=== PATIENT | female | born 1995 | race Caucasian/White ===

== ENCOUNTER 2020-06-11 16:52 | Outpatient (REF) | payer OTHER, SELFPAY ==
--- NOTE | 2020-06-11 14:00 | PAPFT_PTH ---
PATIENT: Ratna King LOC: [facility] U#:[id number] AGE/SX: 24/F ROOM: RE06/11/[address]: JB Kaminski : 1995 BED: DIS: 06/11/2020 SPEC #: [id number] RECD: 06/11/20 17:39 STATUS: CHADWICK REJeosph #: [id number] STEFANIE: 06/11/20 14:[address]: Lesley Mendoza DEPT: [facility] Cytology RECD BY: Joselyn Keita ENTERED: 06/11/20 17:40 SP TYPE: PAPFT OTHR DR: Myesha Green Tissues: 1 - CX/ENDOCX FOR PAP SMEARS Procedures: PAP THIN PREP/[facility] Screening HPV DNA PROBE Comments: [id number]
== END 2020-06-11 17:12 ==
LOC: LBN 16:52
PROVIDERS: PCP Pediatrics Adolescent Medicine; Visit Provider Nurse Practitioner Family
DX: Z12.4 Encounter for screening for malignant neoplasm of cervix (principal); Z11.51 Encounter for screening for human papillomavirus (HPV); R87.612 Low grade squamous intraepithelial lesion on cytologic smear of cervix (LGSIL); R87.810 Cervical high risk human papillomavirus (HPV) DNA test positive
CPT/HCPCS: 88142; 87624

== ENCOUNTER 2020-07-16 10:22 | Outpatient (REF) | payer OTHER, SELFPAY ==
--- NOTE | 2020-07-16 10:10 | ENDO_PTH ---
PATIENT: Ratna King LOC: [facility] U#:[id number] AGE/SX: 24/F ROOM: RE07/16/[address]: Elissa Mckenzie : 1995 BED: DIS: 07/16/2020 SPEC #: [id number] RECD: 07/16/20 12:41 STATUS: CHADWICK REJoesph #: [id number] STEFANIE: 07/16/20 10:[address]: Elissa Mckenzie DEPT: Surgical Specimen RECD BY: Joselyn Keita ENTERED: 07/16/20 12:42 SP TYPE: Endo OTHR DR: Myesha Green Tissues: 1 - ENDOCERVICAL BX/CURRETTE 2 - CERVICAL BIOPSY Procedures: GROSS AND MICRO LEVEL 4 Comments: [id number]
== END 2020-07-16 10:42 ==
LOC: LBN 10:22
PROVIDERS: PCP Pediatrics Adolescent Medicine; Visit Provider Obstetrics & Gynecology Gynecology
DX: N88.8 Other specified noninflammatory disorders of cervix uteri (principal); R87.610 Atypical squamous cells of undetermined significance on cytologic smear of cervix (ASC-US); R87.810 Cervical high risk human papillomavirus (HPV) DNA test positive
CPT/HCPCS: 88305

== ENCOUNTER 2021-08-20 11:55 | Outpatient (REF) | payer OTHER, SELFPAY ==
--- NOTE | 2021-08-20 11:30 | PAPFT_PTH ---
PATIENT: Ratna King LOC: [facility] U#:[id number] AGE/SX: 25/F ROOM: RE08/20/[address]: JB Kaminski : 1995 BED: DIS: 08/20/2021 SPEC #: [id number] RECD: 08/20/21 13:06 STATUS: [place]WICK VASQUEZ #: [id number] STEFANIE: 08/20/21 11:[address]: Lesley Mendoza [facility] Cytology RECD BY: Joselyn Keita ENTERED: 08/20/21 13:06 SP TYPE: PAPFT OTHR DR: Myesha Green Tissues: 1 - CX/ENDOCX FOR PAP SMEARS Procedures: PAP THIN PREP/UVM Screening Comments: [id number]
== END 2021-08-20 11:56 | disposition home or self-care (01) ==
LOC: LBN 11:55
PROVIDERS: PCP Pediatrics Adolescent Medicine; Visit Provider Nurse Practitioner Family
DX: Z12.4 Encounter for screening for malignant neoplasm of cervix (principal)
CPT/HCPCS: 88142

== ENCOUNTER 2022-08-31 11:40 | Outpatient (REF) | payer OTHER, SELFPAY ==
--- NOTE | 2022-08-31 08:30 | PAPFT_PTH ---
PATIENT: Ratna King LOC: [facility] U#:[id number] AGE/SX: 26/F ROOM: RE08/31/[address]: Shital Villela NP : 1995 BED: DIS: 08/31/2022 SPEC #: [id number] RECD: 08/31/22 12:53 STATUS: CH[place]WICK REJoesph #: [id number] STEFANIE: 08/31/22 08:[address]: Shital Villela NP DEPT: [facility] Cytology RECD BY: Joselyn Keita ENTERED: 08/31/22 12:54 SP TYPE: PAPFT OTHR DR: Myesha Green Tissues: 1 - CX/ENDOCX FOR PAP SMEARS Procedures: PAP THIN PREP/UVM Screening Comments: [id number]
== END 2022-08-31 11:41 | disposition home or self-care (01) ==
LOC: LBN 11:40
PROVIDERS: PCP Pediatrics Adolescent Medicine; Visit Provider Nurse Practitioner Women's Health
DX: Z12.4 Encounter for screening for malignant neoplasm of cervix (principal); R87.612 Low grade squamous intraepithelial lesion on cytologic smear of cervix (LGSIL)
CPT/HCPCS: 88142

== ENCOUNTER 2022-09-22 15:41 | Outpatient (REF) | payer OTHER, SELFPAY ==
--- NOTE | 2022-09-22 15:30 | CER_PTH ---
PATIENT: Ratna King LOC: [facility] U#:[id number] AGE/SX: 26/F ROOM: RE09/22/[address]: Hiral Paz MD : 1995 BED: DIS: 09/22/2022 SPEC #: [id number] RECD: 09/22/22 17:08 STATUS: [place]ICK REJoesph #: [id number] STEFANIE: 09/22/22 15:[address]: Hiral Paz DEPT: Surgical Specimen RECD BY: Joselyn Keita ENTERED: 09/22/22 17:08 SP TYPE: CER OTHR DR: Myesha Green Tissues: 1 - CERVICAL BIOPSY Procedures: GROSS AND MICRO LEVEL 4 P16 IPEX Comments: [id number]
== END 2022-09-22 15:42 | disposition home or self-care (01) ==
LOC: LBN 15:41
PROVIDERS: PCP Pediatrics Adolescent Medicine; Visit Provider Obstetrics & Gynecology
DX: N87.0 Mild cervical dysplasia (principal); R87.612 Low grade squamous intraepithelial lesion on cytologic smear of cervix (LGSIL)
CPT/HCPCS: 88305; 88342

== ENCOUNTER 2023-09-26 15:54 | Outpatient (CLI) | payer OTHER, SELFPAY ==
[2023-09-26 17:07] LABS: TSH (W/Ref FT4) 3.79 uIU/mL (0.36-3.74)
[2023-09-26 17:24] LABS: FREE T4 0.79 ng/dL (0.76-1.46)
[2023-09-27 18:30] LABS: Progesterone <0.2 ng/mL (See Table)
[2023-09-27 18:52] LABS: FSH 8.8 mIU/mL (See Note)
[2023-10-03 16:19] LABS: Testosterone, Free 0.66 ng/dL (<0.13-1.06); Testosterone, Total 25 ng/dL (8-60)
== END 2023-09-26 15:55 | disposition home or self-care (01) ==
LOC: LBO 15:57
PROVIDERS: PCP Pediatrics Adolescent Medicine; Visit Provider Nurse Practitioner Women's Health
DX: Z31.9 Encounter for procreative management, unspecified (principal); N92.6 Irregular menstruation, unspecified
CPT/HCPCS: 36415; 84402; 84403; 83001; 83520; 84144; 84439; 84443

== ENCOUNTER 2023-09-26 16:13 | Outpatient (REF) | payer OTHER, SELFPAY ==
--- NOTE | 2023-09-26 15:15 | PAPFT_PTH ---
PATIENT: Ratna King LOC: [facility] U#:[id number] AGE/SX: 27/F ROOM: RE09/26/[address]: Shital Villela NP : 1995 BED: DIS: 09/26/2023 SPEC #: [id number] RECD: 09/26/23 17:45 STATUS: CH[place]WICK VASQUEZ #: [id number] STEFANIE: 09/26/23 15:[address]: Shital Villela NP DEPT: [facility] Cytology RECD BY: Joselyn Keita ENTERED: 09/26/23 17:45 SP TYPE: PAPFT OTHR DR: Myesha Green Tissues: 1 - CX/ENDOCX FOR PAP SMEARS Procedures: PAP THIN PREP/UVM Screening Comments: [id number]
== END 2023-09-26 16:14 | disposition home or self-care (01) ==
LOC: LBN 16:13
PROVIDERS: PCP Pediatrics Adolescent Medicine; Visit Provider Nurse Practitioner Women's Health
DX: Z12.4 Encounter for screening for malignant neoplasm of cervix (principal)
CPT/HCPCS: 88142

== ENCOUNTER 2024-04-30 22:20 | Outpatient (CLI) | payer OTHER, SELFPAY ==
--- OUTSIDE RECORDS SUMMARY | 2024-04-30 22:22 | XMS_ITS | Encounter Summary ---
Author Organization [facility] Address [address] [place] [address] Care Team Providers Care Corporate Aircraft Mechanic Name Role Phone Kerry Green MD Primary Care Provider [phone] Encounter Details Date Type Department Care Team (Late st Contact Info) Description 08/23/2021 Lab Requisition [facility] Pathology & Laboratory Medicine - [address] [address] Lesley Mendoza, [address] [place] [place] [address] Encounter for other general examination Social History Tobacco Use Types Packs/Day Years Used Date Smoking Tobacco: Never Assessed Sex and Gender Information Value Date Recorded Sex Assigned at Not on file Gender Identity Not on file Sexual Orientation Not on file documented as of this encounter Plan of Treatment Not on file documented as of this encounter Procedures Procedure Name Priority Date/Time Associated Diagnosis Comments PAP TEST Today 08/20/2021 11:30 EST Encounter for other general examination documented in this encounter Results * PAP TEST (08/20/2021 11:30 EST) Specimens A. Cervix and/or Endocervix , ThinPrep Imaging System with Manual Evaluation 08/31/2021 15:12 EST [facility] Specimen Adequacy Satisfactory for Evaluation - transformation zone component absent 08/31/2021 15:12 EST [facility] General Categorization Negative for intraepithelial lesion or malignancy 08/31/2021 15:12 EST [facility] Attestation . 08/31/2021 15:12 EST [facility] at 1512 Clinical History See below 08/31/19 15:12 EST [facility] Performing Lab [facility] 08/31/2021 15:12 EST [facility] Scanned Images 08/31/2021 15:12 EST [facility] Papanicolaou smear specimen (specimen) CERVIX UTERI STRUCTURE / Unknown 08/20/2021 11:30 EST 08/23/2021 10:52 EST Lesley Mendoza INTEGRATED SPECIALIST PATHOLOGY ORDERABLES Performing Organization Address City/State/[facility] Co de Phone Number [facility] [address] [place] [address] documented in this encounter Visit Diagnoses Diagnosis Encounter for other general examination documented in this encounter Care Teams Corporate Aircraft Mechanic Relationship Specialty Start Date End Date Kerry Green MD [address] [place] [address] PCP - General 06/11/20 documented as of this encounter
--- OUTSIDE RECORDS SUMMARY | 2024-04-30 22:22 | XMS_ITS | Encounter Summary ---
Author Organization [facility] Address [address] [place] [address] Care Team Providers Care Specialty Molder Name Role Phone Kerry Green MD Primary Care Provider Encounter Details Date Type Department Care Team (Late st Contact Info) Description 04/30/2024 Lab Requisition [facility] Pathology & Laboratory Medicine - [address] [address] Outr Resulting Lab, Provider Social History Tobacco Use Types Packs/Day Years Used Date Smoking Tobacco: Never Assessed Sex and Gender Information Value Date Recorded Sex Assigned at Not on file Gender Identity Not on file Sexual Orientation Not on file documented as of this encounter Plan of Treatment Scheduled Orders Name Type Priority Associated Diagnoses Orde r Schedule CHLAMYDIA/N. GONORRHOEAE AMPLIFIED NUCLEIC ACID Microbiology Routine Ordered: 024 documented as of this encounter Visit Diagnoses Not on filedocumented in this encounter Care Teams Specialty Molder Relationship Specialty Start Date End Date Kerry Green MD [address] [place] [address] PCP - General 06/11/20 documented as of this encounter
--- OUTSIDE RECORDS SUMMARY | 2024-04-30 22:22 | XMS_ITS | Encounter Summary ---
Author Organization [facility] Address [address] [place] [address] Care Team Providers Care Tar Heat Exchanger Cleaner Name Role Phone Kerry Green MD Primary Care Provider [phone] Encounter Details Date Type Department Care Team (Late st Contact Info) Description 06/09/2021 Lab Requisition [facility] Pathology & Laboratory Medicine - [address] [address] Outr Resulting Lab, Provider Social History Tobacco [...] Procedure Name Priority Date/Time Associated Diagnosis Comments ZZCOVID-19 TEST [facility] PCR Today 06/09/2021 10:15 EST COVID-19 TESTING Routine 06/09/2021 10:1 5 EST documented in this encounter Results * COVID-19 TEST [facility] PCR (06/09/2021 10:15 EST) Swab 06/09/2021 10:1 5 EST 06/09/2021 22:40 EST Provider Outr Resulting Lab MICROBIOLOGY - GENERAL ORDERABLES [facility] [address] [place] [address] * COVID-19 TESTING (06/09/2021 10:15 EST) COVID-19 rt-PCR Result Negative Negative 06/10/2021 2:20 EST [facility] Comment: This test has not been FDA cleared or approved. This test has been authorized by FDA under an EUA for use by authorized laboratories. This test has been authorized only for detection of nucleic acid from 2019-nCoV, not for any other viruses or pathogens. This test is only authorized for the duration of the declaration that circumstances exist justifying the authorization of emergency use of in vitro diagnostic tests for detection and/or diagnosis of 2019-nCoV under section 564(b)(1) of Act, 21 U.S.C ?? 360bbb-3(b) (1), unless the authorization is terminated or revoked sooner. Negative results do not preclude 2019-nCoV infection and should not be used as the sole basis for treatment or other patient management decisions. Negative results must be combined with clinical observations, patient history, and epidemiological information. Performed on the MWHSher Fusion instrument Performing Lab [place] [facility] 06/10/2021 2:20 EST [facility] Swab 06/09/2021 10:1 5 EST 06/09/2021 22:40 EST Provider Outr Resulting Lab MICROBIOLOGY - GENERAL ORDERABLES [facility] [address] [place] [address] documented in this encounter Visit Diagnoses Not on filedocumented in this encounter Care Teams Tar Heat Exchanger Cleaner Relationship Specialty Start Date End Date Kerry Green MD [address] [place] [address] PCP - General 06/11/20 documented as of this encounter
--- OUTSIDE RECORDS SUMMARY | 2024-04-30 22:22 | XMS_ITS | Encounter Summary ---
Author Organization [facility] Address [address] [place] [address] Care Team Providers Care Machine Icer Name Role Phone Kerry Green MD Primary Care Provider [phone] Encounter Details Date Type Department Care Team (Late st Contact Info) Description 09/27/2023 Lab Requisition [facility] Pathology & Laboratory Medicine - [address] [id number] Outr Resulting Lab, Provider Social History Tobacco [...] Procedure Name Priority Date/Time Associated Diagnosis Comments PROGESTERONE Routine 09/26/2023 15:44 EDT [facility] Routine 09/26/2023 15:44 EDT documented in this encounter Results * FSH (09/26/2023 15:44 EDT) FSH 8.8 See Note mIU/mL 09/27/2023 18:47 EDT [facility] Blood VENOUS BLOOD / Unknown 09/26/2023 15:44 EDT 09/27/2023 16:58 EDT Narrative [facility] - 09/27/2023 18:47 EDT NOTE: Female FSH Reference Ranges (Menstruating): PHYSIOLOGICAL STATUS ? REFERENCE RANGE ? Follicular (-12 to -4 days): ?? 2.5 - 10.2 mIU/mL Midcycle (-3 to +2 days): ?3.4 - 33.4 mIU/mL Luteal (+4 to +12 days): ? 1.5 - 9.1 mIU/mL Postmenopausal: ?23.0 - 116.3 mIU/mL Reference Ranges for pediatric non-menstruating female patients have not been established. Provider Outr Resulting Lab CHEMISTRY & BLOOD GAS ORDERABLES [facility] [address] [place] [address] * PROGESTERONE (09/26/2023 15:44 EDT) [facility] Progesterone <0.2 See Table ng/mL 09/27/2023 18:26 EDT [facility] Comment: Female Reference Ranges: PHYSIOLOGICAL STATUS ?REFERENCE RANGE ? Pre-Pubertal: ? <= 0.2 ng/mL Menstruating: (Non-) Follicular Phase: ? <= 1.4 ng/mL Luteal Phase: ? 3.3 - 25.6 ng/mL Mid-luteal Phase: ? 4.4 - 28.0 ng/mL Postmenopausal: ? <= 0.7 ng/mL : -------- First Trimester: ?11.2 - 90.0 ng/mL Second Trimester: ? 25.6 - 89.4 ng/mL Third Trimester: ?48.4 - 422.5ng/mL For ectopic , consult a pathologist. Blood VENOUS BLOOD / Unknown 09/26/2023 15:44 EDT 09/27/2023 16:58 EDT Provider Outr Resulting Lab CHEMISTRY & BLOOD GAS ORDERABLES Performing Organization Address City/State/[facility] Co de Phone Number [facility] [address] [place] [address] documented in this encounter Visit Diagnoses Not on filedocumented in this encounter Care Teams Machine Icer Relationship Specialty Start Date End Date Kerry Green MD [address] [place] [address] PCP - General 06/11/20 documented as of this encounter
--- OUTSIDE RECORDS SUMMARY | 2024-04-30 22:22 | XMS_ITS | Encounter Summary ---
Author Organization [facility] Address [address] [place] [address] Care Team Providers Care Scientific Artist Name Role Phone Kerry Green MD Primary Care Provider [phone] Encounter Details Date Type Department Care Team (Late st Contact Info) Description 09/23/2022 Lab Requisition [facility] Pathology & Laboratory Medicine - [address] [address] Hiral Paz MD [address] [place] [address] [place] [address] Encounter for other general examination [...] Procedure Name Priority Date/Time Associated Diagnosis Comments SURGICAL PATHOLOGY Today 09/22/2022 15 :30 EDT Encounter for other general examination documented in this encounter Results * SURGICAL PATHOLOGY (09/22/2022 15:30 EDT) Note to Patient The following pathology results have been interpreted by your pathologist and may be available to you before your health provider has had the opportunity to review them. Please allow time for your provider to receive these results and explore management options, if applicable. 09/27/2022 10:39 EDT [facility] Final Diagnosis A. 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 See comment. 09/27/2022 10:39 [facility] Diagnosis Comment Focal squamous intraepithelial neoplasia is noted, however the focus is small and poorly oriented. The focus is absent on IHC stains, therefore high-grade dysplasia cannot be entirely excluded. Immunoperoxidase stains were performed on this case to further characterize the lesion. ANTIBODY(CLONE)(BL OCK):RESULT P16 (E6H4TM, [place]) (A1): Atypical squamous epithelium absent on IHC; no definitive block-like expression. NOTE: One or more of the reagents used in immunoperoxidase testing in this case may not have been cleared or approved by the U.S. Food and Drug Administration (FDA). The FDA has determined that such clearance or approval is not necessary. These tests are used for clinical purposes. They should not be regarded as investigational or for research. These reagents' performance characteristics have been determined by [facility] and/or by the referring laboratory. The positive and negative controls worked appropriately. If immunoperoxidase staining has been performed on alcohol fixed cytology specimens, which has not been fully validated, the assays should be interpreted with caution and correlated with clinical data. This laboratory is certified under the Clinical Laboratory Improvement Amendments of 1988 (CLIA-88) as qualified to perform high complexity clinical laboratory testing. 09/27/2022 10:39 [facility] Attestation There was significant resident/fellow involvement in the diagnostic evaluation of this case. By the signature below, the attending physician certifies that they have personally conducted a gross and/or microscopic examination of the described specimens and rendered or confirmed the above diagnosis. 09/27/2022 10:39 [facility] at 1039 Clinical History LSIL 09/27/2022 10:39 [facility] Gross Description A. Received in formalin, on a Histologic SFT-100 device, labelled with proper patient identification (initials C, S) and cervical Bx is a 0.2 x 0.1 x 0.1 cm aggregate of das-white soft tissue. The specimen is entirely submitted in A1. LETICIA FREEMAN(ASCP) 09/23/2022 10:14 09/27/2022 10:39 EDT [facility] Resident/Robby w: Patti Pike MD 09/27/2022 10:39 EDT [facility] Performing Lab [facility] 10:39 EDT [facility] Scanned Images 09/27/2022 10:39 EDT [facility] Tissue ENTIRE WALL OF CERVIX / Unknown 09/22/2022 15:30 EDT 09/23/2022 8:10 EDT Hiral Paz MD PATHOLOGY ORDERABLES [facility] [address] [place] [address] documented in this encounter Visit Diagnoses Diagnosis Encounter for other general examination documented in this encounter Care Teams Scientific Artist Relationship Specialty Start Date End Date Kerry Green MD [address] [place] [address] PCP - General 06/11/20 documented as of this encounter
--- OUTSIDE RECORDS SUMMARY | 2024-04-30 22:22 | XMS_ITS | Encounter Summary ---
Author Organization [facility] Address [address] [place] [address] Care Team Providers Care Test And Turn Up Technician Name Role Phone Kerry Green MD Primary Care Provider [phone] Encounter Details Date Type Department Care Team (Late st Contact Info) Description 04/30/2024 Lab Requisition [facility] Pathology & Laboratory Medicine - [address] [address] Outr Resulting Lab, Provider Social History Tobacco Use Types Packs/Day Years Used Date Smoking Tobacco: Never Assessed Sex and Gender Information Value Date Recorded Sex Assigned at Not on file Gender Identity Not on file Sexual Orientation Not on file documented as of this encounter Plan of Treatment Pending Results Name Type Priority Associated Diagnoses Date /Time VARICELLA IGG ANTIBODY Lab Routine 15:13 EDT MEASLES IGG AB Lab Routine 04/30/2024 15:13 EDT SYPHILIS SEROLOGY Lab Routine 024 15:13 EDT THYROPEROXIDASE ANTIBODY Lab Routine 04/30/2024 15:13 EDT documented as of this encounter Visit Diagnoses Not on filedocumented in this encounter Care Teams Test And Turn Up Technician Relationship Specialty Start Date End Date Kerry Green MD [address] [place] [address] PCP - General 06/11/20 documented as of this encounter
--- OUTSIDE RECORDS SUMMARY | 2024-04-30 22:22 | XMS_ITS | Encounter Summary ---
Author Organization [facility] Address [address] [place] [address] Care Team Providers Care Souvenir [address] Vendor Name Role Phone Kerry Green MD Primary Care Provider [phone] Encounter Details Date Type Department Care Team (Late st Contact Info) Description 09/29/2023 Lab Requisition [facility] Pathology & Laboratory Medicine - [address] [address] Shital Villela, AUTOMOBILE TIRE BUILDER [address] [place] [id number] Encounter for other general examination Social History [...] Date/Time Associated Diagnosis Comments PAP TEST Today 09/26/2023 15:15 EDT Encounter for other general examination documented in this encounter Results * PAP TEST (09/26/2023 15:15 EDT) Specimens A. Cervix and/or Endocervix , ThinPrep Imaging System with Manual Evaluation 10/03/2023 13:55 EDT [facility] Specimen Adequacy Satisfactory for Evaluation - transformation zone component present 10/03/2023 13:55 EDT [facility] General Categorization Negative for intraepithelial lesion or malignancy 10/03/2023 13:55 EDT [facility] Attestation . 10/03/2023 13:55 EDT [facility] at 1355 Clinical History See below 10/03/19 13:55 EDT [facility] Performing Lab [facility] 10/03/2023 13:55 EDT [facility] Scanned Images 10/03/2023 13:55 EDT [facility] Pap Test CERVIX UTERI STRUCTURE / Unknown 09/26/2023 15:15 EDT 09/29/2023 9:41 EDT Shital A Manohar AUTOMOBILE TIRE BUILDER PATHOLOGY ORDERAB LES [facility] [address] [place] [address] documented in this encounter Visit Diagnoses Diagnosis Encounter for other general examination documented in this encounter Care Teams Souvenir Street Vendor Relationship Specialty Start Date End Date Kerry Green MD [address] [place] [address] PCP - General 06/11/20 documented as of this encounter
--- OUTSIDE RECORDS SUMMARY | 2024-04-30 22:22 | XMS_ITS | Encounter Summary ---
Author Organization [facility] Address [address] [place] [address] Care Team Providers Care Clerk Name Role Phone Kerry Green MD Primary Care Provider Encounter Details Date Type Department Care Team (Late st Contact Info) Description 04/30/2024 Lab Requisition [facility] Pathology & Laboratory Medicine - [address] [address] Outr Resulting Lab, Provider Social History Tobacco Use Types Packs/Day Years Used Date Smoking Tobacco: Never Assessed Sex and Gender Information Value Date Recorded Sex Assigned at Not on file Gender Identity Not on file Sexual Orientation Not on file documented as of this encounter Plan of Treatment Pending Results Name Type Priority Associated Diagnoses Date /Time HIV 1/2 ANTIGEN AND ANTIBODY , 4TH GENERATION Lab Routine 04/30/2024 15:13 EDT documented as of this encounter Visit Diagnoses Not on filedocumented in this encounter Care Teams Clerk Relationship Specialty Start Date End Date Kerry Green MD [address] [place] [address] PCP - General 06/11/20 documented as of this encounter
--- OUTSIDE RECORDS SUMMARY | 2024-04-30 22:22 | XMS_ITS | Encounter Summary ---
Author Organization [facility] Address [address] [place] [address] Care Team Providers Care Professor Of Legal Studies Name Role Phone Kerry Green MD Primary Care Provider [phone] Encounter Details Date Type Department Care Team (Late st Contact Info) Description 05/28/2021 Lab Requisition [facility] Pathology & Laboratory Medicine - [address] [address] Outr Resulting Lab, Provider Social History Tobacco [...] Priority Date/Time Associated Diagnosis Comments ZZCOVID-19 TEST [facility] PCR Today 05/28/2021 9:05 EST COVID-19 TESTING Routine 05/28/2021 9:05 EST documented in this encounter Results * COVID-19 TEST [facility] PCR (05/28/2021 9:05 EST) Swab 05/28/2021 9:05 EST 05/28/2021 20:11 EST Provider Outr Resulting Lab MICROBIOLOGY - GENERAL ORDERABLES [facility] [address] [place] [address] * COVID-19 TESTING (05/28/2021 9:05 EST) COVID-19 rt-PCR Result Negative Negative 05/28/2021 23:38 EST [facility] Comment: This test has [...] history, and epidemiological information. Performed on the Sellywhereher Fusion instrument Performing Lab [place] [facility] 05/28/2021 23:38 EST [facility] Swab 05/28/2021 9:05 EST 05/28/2021 20:11 EST Provider Outr Resulting Lab MICROBIOLOGY - GENERAL ORDERABLES [facility] [address] [place] [address] documented in this encounter Visit Diagnoses Not on filedocumented in this encounter Care Teams Professor Of Legal Studies Relationship Specialty Start Date End Date Kerry Green MD [address] [place] [address] PCP - General 06/11/20 documented as of this encounter
--- OUTSIDE RECORDS SUMMARY | 2024-04-30 22:22 | XMS_ITS | Encounter Summary ---
Author Organization [facility] Address [address] [place] [address] Care Team Providers Care Park Maintainer Name Role Phone Unknown, Provider Primary Care Provider [phone] Encounter Details Date Type Department Care Team (Late st Contact Info) Description 01/03/2019 Results Only [facility] [phone] Dillon Serrano, [address] [address] Social History Tobacco Use Types Packs/Day Years Used Date Smoking Tobacco: Never Assessed Sex and Gender Information Value Date Recorded Sex Assigned at Not on file Gender Identity Not on file Sexual Orientation Not on file documented as of this encounter Plan of Treatment Not on file documented as of this encounter Procedures Procedure Name Priority Date/Time Associated Diagnosis Comments PAP TEST- RESULT ONLY Routine 01/03/2019 0:00 EDT documented in this encounter Results * PAP TEST- RESULT ONLY (01/03/2019 0:00 EDT) Pathology Report: CYTOPATHOLOGY REPORT Reports generated via electronic interface contain original data; however they are lacking the format of the original report. Caution should be taken when reading/interpreti ng unformatted reports. Name: ? SMILEY JOHN ? Accession #: ? [id number] : ? 1995 (Age: 23) ??F ?Collect Date: ? 01/03/2019 Location: ? [facility] ? Receive Date: ? 01/04/2019 Provider: ?DILLON SERRANO NMW Copy to: ? Specimen/Source: ?Pap Test, Cervix/Endocervix, ThinPrep Imaging System with manual evaluation Last Menstrual Period: ? 12/16/18 Hormonal/Contracep tive Status: ? Yes Other: ? Additional clinical information: Z01.419 Z11.3 Z11.8 Z11.51 Previous NIL Pap(s): 06/23 ? SPECIMEN ADEQUACY ? Satisfactory for Evaluation - transformation zone component present GENERAL CATEGORIZATION ? Negative for Intraepithelial Lesion or Malignancy ? Document reviewed and electronically signed by: ? Lizzette Lala, AL(ASCP)(IAC) ? Report Date: ??01/09/2019 12:37 End of Report [facility] 01/03/2019 01/04/2019 Dillon Serrano [facility] ORDERA DHIRAJ [facility] [address] [place] [address] documented in this encounter Visit Diagnoses Not on filedocumented in this encounter Care Teams Park Maintainer Relationship Specialty Start Date End Date Unknown, Provider, PCP - General 06/26/15 06/10/20 documented as of this encounter
--- OUTSIDE RECORDS SUMMARY | 2024-04-30 22:22 | XMS_ITS | Encounter Summary ---
Author Organization [facility] Address [address] [place] [address] Care Team Providers Care Cyber Analyst Name Role Phone Kerry Green MD Primary Care Provider [phone] Encounter Details Date Type Department Care Team (Late st Contact Info) Description 04/30/2024 Lab Requisition [facility] Pathology & Laboratory Medicine - [address] [address] Outr Resulting Lab, Provider Social History Tobacco Use Types Packs/Day Years Used Date Smoking Tobacco: Never Assessed Sex and Gender Information Value Date Recorded Sex Assigned at Not on file Gender Identity Not on file Sexual Orientation Not on file documented as of this encounter Plan of Treatment Pending Results Name Type Priority Associated Diagnoses Date /Time HEPATITIS C AB W REFLEX TO HCV RNA BY PCR Lab Routine 04/30/2024 15:13 EDT HEPATITIS B SURFACE ANTIGEN Lab Routine 04/30/2024 15:13 EDT HEPATITIS B CORE ANTIBODY (TOTAL) Lab Routine 04/30/2024 15:13 EDT documented as of this encounter Visit Diagnoses Not on filedocumented in this encounter Care Teams Cyber Analyst Relationship Specialty Start Date End Date Kerry Green MD [address] [place] [address] PCP - General 06/11/20 documented as of this encounter
--- OUTSIDE RECORDS SUMMARY | 2024-04-30 22:22 | XMS_ITS | Encounter Summary ---
Author Organization [facility] Address [address] [place] [address] Care Team Providers Care Hydraulic Jack Operator Name Role Phone Kerry Green MD Primary Care Provider [phone] Encounter Details Date Type Department Care Team (Late st Contact Info) Description 09/01/2022 Lab Requisition [facility] Pathology & Laboratory Medicine - [address] [address] Shital Villela, SUNGLASS CLIP ATTACHER [address] [place] [phone] Encounter for other general examination Social History [...] Date/Time Associated Diagnosis Comments PAP TEST Today 08/31/2022 8:30 EST Encounter for other general examination documented in this encounter Results * PAP TEST (08/31/2022 8:30 EST) Specimens A. Cervix and/or Endocervix , ThinPrep Imaging System with Manual Evaluation 09/14/2022 8:20 EST [facility] Specimen Adequacy Satisfactory for Evaluation - transformation zone component present 09/14/2022 8:20 EST [facility] General Categorization Epithelial Cell Abnormality 09/14/2022 8:20 EST [facility] Descriptive Diagnosis 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 09/14/2022 8:20 [facility] Educational Comments [facility] recommends following the ASCCP's management guidelines which may be found at www.asccp.org 09/14/2022 8:20 EST [facility] Attestation By the signature below, the attending physician certifies that they have personally conducted a gross and/or microscopic examination of the described specimens and rendered or confirmed the above diagnosis. 09/14/2022 8:20 EST [facility] at 0820 Clinical History See below 09/15/19 8:20 [facility] Performing Lab [facility] 09/14/2022 8:20 EST [facility] Scanned Images 09/14/2022 8:20 EST [facility] Papanicolaou smear specimen (specimen) CERVIX UTERI STRUCTURE / Unknown 08/31/2022 8:30 EST 09/01/2022 9:38 EST Shital Villela APRN PATHOLOGY ORDERAB LES [facility] [address] [place] [address] documented in this encounter Visit Diagnoses Diagnosis Encounter for other general examination documented in this encounter Care Teams Hydraulic Jack Operator Relationship Specialty Start Date End Date Kerry Green MD [address] [place] [address] PCP - General 06/11/20 documented as of this encounter
--- OUTSIDE RECORDS SUMMARY | 2024-04-30 22:22 | XMS_ITS | Referral Summary ---
Author Organization [facility] Address [address] [place] [address] Care Team Providers Care Head Of Cytogenetics Name Role Phone Kerry Green MD Primary Care Provider [phone] Encounters Date Type Department Care Team Description 04/30/2024 Lab Requisition [facility] Pathology & Laboratory [facility] [address] [place] [address] Outr Resulting Lab, Provider 04/30/2024 Lab Requisition [facility] Pathology & Laboratory [facility] [address] [place] [address] Outr Resulting Lab, Provider 04/30/2024 Lab Requisition [facility] Pathology Laboratory [facility] [address] [place] [address] Outr Resulting Lab, Provider 04/30/2024 Lab Requisition [facility] Pathology Laboratory [facility] [address] [place] [address] Outr Resulting Lab, Provider from Last 3 Months Social History Tobacco Use Types Packs/Day Years Used Date Smoking Tobacco: Never Assessed Sex and Gender Information Value Date Recorded Sex Assigned at Not on file Gender Identity Not on file Sexual Orientation Not on file Plan of Treatment Not on file Ratna King Personal/Family Self 1995 [address] [place] [address] Ratna King Personal/Family Self 1995 [address] [facility] [place] [address] Ratna King Personal/Family Self 1995 [address] [facility] [place] [address] Ratna King Personal/Family Self 1995 [address] [facility] [place] [address] Care Teams Head Of Cytogenetics Relationship Specialty Start Date End Date Kerry Green MD [address] [place] [address] PCP - General 06/11/20
--- OUTSIDE RECORDS SUMMARY | 2024-04-30 22:22 | XMS_ITS | Encounter Summary ---
Author Organization [facility] Address [address] [place] [address] Care Team Providers Care Radial Router Operator Name Role Phone Kerry Green MD Primary Care Provider [phone] Encounter Details Date Type Department Care Team (Late st Contact Info) Description 07/16/2020 Lab Requisition [facility] Pathology & Laboratory Medicine - [address] [address] Elissa Cesar MD [address] [place] [address] [address] [address] Encounter for other general examination Social History [...] Date/Time Associated Diagnosis Comments SURGICAL PATHOLOGY Today 07/16/2020 10 :10 EST Encounter for other general examination documented in this encounter Results * SURGICAL PATHOLOGY (07/16/2020 10:10 EST) Final Diagnosis A. ENDOCERVIX, CURETTAGE: - Benign endocervical epithelium. B. CERVIX, 3 O'CLOCK, BIOPSY: - Transformation zone mucosa with reactive epithelial change. See comment. 07/22/2020 16:[address] [facility] Diagnosis Comment The prior Pap test ([id number]) has been reviewed and we agree with the diagnosis of low grade squamous intraepithelial lesion (LSIL). The atypical cells present on the Pap test are not present on the cervical biopsy or endocervical curettage. Deeper sections have been evaluated. 07/22/2020 16:34 [facility] Attestation There was significant resident/fellow involvement in the diagnostic evaluation of this case. By the signature below, the attending physician certifies that they have personally conducted a gross and/or microscopic examination of the described specimens and rendered or confirmed the above diagnosis. 07/22/2020 16:34 [facility] at 1634 Clinical History LSIL +HPV 07/22/2020 16:34 [facility] Gross Description A. Received in formalin labelled with proper patient identification (initials C, S) and endo CX curettage is a 0.8 x 0.8 x 0.3 cm aggregate of red-brown mucus. The specimen is entirely submitted in A1. B. Received in formalin labelled with proper patient identification (initials C, S) and CX 3 o'clock is a 0.4 x 0.3 x 0.3 cm fragment of das-white tissue. The specimen is entirely submitted in B1. LETICIA FREEMAN(ASCP) 07/16/2020 16:34 07/22/2020 16:34 [facility] Resident/Robby w: Huber Redman MD 07/22/2020 16:34 [facility] Performing Lab [facility] 16:34 [facility] Scanned Images 07/22/2020 16:34 [facility] Tissue ENTIRE WALL OF CERVIX / Unknown 07/16/2020 10:10 EST 07/16/2020 15:40 EST Tissue specimen (specimen) CERVIX UTERI STRUCTURE / Unknown 07/16/2020 10:10 EST 07/16/2020 15:40 EST Elissa Cesar MD PATHOLOGY ORDERABLES [facility] [address] [place] [address] documented in this encounter Visit Diagnoses Diagnosis Encounter for other general examination documented in this encounter Care Teams Radial Router Operator Relationship Specialty Start Date End Date Kerry Green MD [address] [place] [address] PCP - General 06/11/20 documented as of this encounter
--- OUTSIDE RECORDS SUMMARY | 2024-04-30 22:22 | XMS_ITS | Encounter Summary ---
Author Organization [facility] Address [address] [place] [address] Care Team Providers Care Pre Sales Architect Name Role Phone Kerry Green MD Primary Care Provider [phone] Encounter Details Date Type Department Care Team (Late st Contact Info) Description 06/12/2020 Lab Requisition [facility] Pathology & Laboratory Medicine - [address] [address] Lesley Mendoza, [address] [place] [address] Encounter for other general examination [...] Date/Time Associated Diagnosis Comments PAP TEST Today 06/11/2020 14:00 EST Encounter for other general examination HPV DNA DETECTION WITH GENOTYPING, PCR Today 06/11/2020 14:00 EST Encounter for other general examination documented in this encounter Results * (ABNORMAL) HUMAN PAPILLOMAVIRUS (HPV) DETECTION-HIGH RISK TYPES (06/11/2020 14:00 EST) HPV other High Risk types, PCR Positive( A) Negative 06/25/2020 14:52 EST [facility] Comment:E6 OR E7 mRNA from o ne or more types of HPV types 16,18,31,33,35,39,45,51,52,56,58,59,66, and 68 is detected by hand crown pouncer mediated amplification. High and intermediate risk HPV types are associated with most squamous intraepithelial lesions and cervical cancers. Papanicolaou smear specimen (specimen) CERVIX UTERI STRUCTURE / Unknown 06/11/2020 14:00 EST 06/18/2020 11:21 EST Lesley Andresod DIRECTOR OF MARKET ANALYSIS MICROBIOLOGY - GENER AL ORDERABLES Performing Organization Address City/State/[facility] Co de Phone Number [facility] [address] [place] [address] * PAP TEST (06/11/2020 14:00 EST) Specimens A. Cervix and/or Endocervix , ThinPrep Imaging System with Manual Evaluation 06/25/2020 14:52 [facility] Specimen Adequacy Satisfactory for Evaluation - transformation zone component present 06/25/2020 14:52 [facility] General Categorization Epithelial Cell Abnormality 06/25/2020 14:52 [facility] Descriptive Diagnosis 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 06/25/2020 14:52 [facility] Educational Comments [facility] recommends following ASCCP's 2012 Updated Consensus Guidelines for the Management of Abnormal Cervical Cancer Screening Tests and Cancer Precursors (JLGTD, 2013; 17(5):S1-S27). Consensus guidelines are available online at www.asccp.org. 06/25/2020 14:52 [facility] Attestation By the signature below, the attending physician certifies that they have personally conducted a gross and/or microscopic examination of the described specimens and rendered or confirmed the above diagnosis. 06/25/2020 14:52 [facility] at 1452 Clinical History See below 06/25/20 14:52 [facility] HPV The result for the Human Papillomavirus (HPV) Detection-High Risk Types is Positive . E6 OR E7 mRNA from one or more types of HPV types 16,18,31,33,35,39 ,45,51,52,56,58,5 9,66, and 68 is detected by hand crown pouncer mediated amplification. High and intermediate risk HPV types are associated with most squamous intraepithelial lesions and cervical cancers. Testing was performed on specimen [id number] and was resulted on 06/25/2020 1449 EST by LEXY, LAB INSTRUMENT RESULTS IN 06/25/2020 14:52 EST [facility] Performing Lab [facility] 06/25/2020 14:52 EST [facility] Scanned Images 06/25/2020 14:52 EST [facility] Papanicolaou smear specimen (specimen) CERVIX UTERI STRUCTURE / Unknown 06/11/2020 14:00 EST 06/12/2020 9:55 EST Lesley Mendoza DIRECTOR OF MARKET ANALYSIS PATHOLOGY ORDERABLES [facility] [address] [place] [address] documented in this encounter Visit Diagnoses Diagnosis Encounter for other general examination documented in this encounter Care Teams Pre Sales Architect Relationship Specialty Start Date End Date Kerry Green MD [address] [place] [address] PCP - General 06/11/20 documented as of this encounter
--- OUTSIDE RECORDS SUMMARY | 2024-04-30 22:22 | XMS_ITS | Clinical Summary ---
Author Organization [facility] Address [address] [place] [address] Care Team Providers Care Hat Brusher Machine Name Role Phone Kerry Green MD Primary Care Provider [phone] Encounters Date Type Department Care Team Description 04/30/2024 Lab Requisition [facility] Pathology & Laboratory [facility] [address] [place] [address] Outr Resulting Lab, Provider 04/30/2024 Lab Requisition [facility] Pathology & Laboratory [facility] [address] [place] [address] Outr Resulting Lab, Provider 04/30/2024 Lab Requisition [facility] Pathology Laboratory [facility] [address] [place] [address] Outr Resulting Lab, Provider 04/30/2024 Lab Requisition [facility] Pathology Laboratory [facility] [address] [place] [address] Outr Resulting Lab, Provider from Last 3 Months Social History Tobacco Use Types Packs/Day Years Used Date Smoking Tobacco: Never Assessed Sex and Gender Information Value Date Recorded Sex Assigned at Not on file Gender Identity Not on file Sexual Orientation Not on file Plan of Treatment Health Maintenance Due Date Last Done Comments Hepatitis C Screen 1995 Hepatitis B Vaccine (1 of 3 - 19+ 3-dose series) 10/23 COVID-19 Vaccine (2022-24 season) 2023 Care Teams Hat Brusher Machine Relationship Specialty Start Date End Date Kerry Green MD [address] [place] [address] PCP - General 06/11/20
--- OUTSIDE RECORDS SUMMARY | 2024-04-30 22:23 | XMS_ITS | Encounter Summary ---
Author Organization [facility] Address [address] [place] [address] Care Team Providers Care Furnace Unloader Name Role Phone Unknown, Provider Primary Care Provider [phone] Encounter Details Date Type Department Care Team (Late st Contact Info) Description 06/26/2015 Results Only [facility] [phone] Dillon Serrano, [address] [id number] Social History Tobacco Use Types Packs/Day Years [...] Diagnosis Comments PAP TEST- RESULT ONLY Routine 06/26/2015 0:00 EST documented in this encounter Results * PAP TEST- RESULT ONLY (06/26/2015 0:00 EST) Pathology Report: CYTOPATHOLOGY REPORT Reports generated via electronic interface contain original data; however they are lacking the format of the original report. Caution should be taken when reading/interpreti ng unformatted reports. Name: ? SMILEYJOHN ? Accession #: ? [id number] : ? 1995 (Age: 19) ??F ?Collect Date: ? 06/26/2015 Location: ? [facility] ? Receive Date: ? 06/29/2015 Provider: ?DILLON SERRANO NMW Copy to: ? Specimen/Source: ?Pap Test, Cervix/Endocervix, ThinPrep Imaging System with manual evaluation Last Menstrual Period: ? 06/21/15 Hormonal/Contracep tive Status: ? Oral contraceptives ? SPECIMEN ADEQUACY ? Satisfactory for Evaluation - transformation zone component present GENERAL CATEGORIZATION ? Negative for Intraepithelial Lesion or Malignancy ? Document reviewed and electronically signed by: ? AL Gonzalez(ASCP)(IAC) ? Report Date: ??07/01/2015 14:22 End of Report [facility] 06/26/2015 06/29/2015 Dillon Serrano [facility] PATH[facility] ORDERA DHIRAJS [facility] [address] [place] [address] documented in this encounter Visit Diagnoses Not on filedocumented in this encounter Care Teams Furnace Unloader Relationship Specialty Start Date End Date Unknown, Provider, PCP - General 06/26/15 06/10/20 documented as of this encounter
[2024-04-30 23:53] LABS: Hepatitis C Ab w Rflx HCV PCR Negative (Negative)
[2024-04-30 23:57] LABS: HIV-1/2 Ag & Ab Screen Negative (Negative)
[2024-05-01 10:24] LABS: Hepatitis B Surface Ag Negative (Negative)
[2024-05-01 10:45] LABS: Hep B Core Antibody Negative (Negative)
[2024-05-01 11:03] LABS: Thyroperoxidase Antibody 36 U/mL (<=60)
[2024-05-01 12:08] LABS: Chlamydia Result Negative (Negative); GC Result Negative (Negative)
[2024-05-01 12:43] LABS: Measles IgG Antibody Positive (See Note)
[2024-05-01 12:47] LABS: Varicella IgG Antibody Positive (See Note)
[2024-05-01 12:52] LABS: Syphilis Serology (RPR) Negative (Negative)
== END 2024-04-30 22:21 | disposition home or self-care (01) ==
LOC: LBO 22:21
PROVIDERS: PCP Pediatrics Adolescent Medicine; Visit Provider Nurse Practitioner Family
DX: Z11.59 Encounter for screening for other viral diseases (principal); Z11.4 Encounter for screening for human immunodeficiency virus [HIV]; Z11.3 Encounter for screening for infections with a predominantly sexual mode of transmission
CPT/HCPCS: 36415; 86704; 86787; 86803; 86850; 86900; 86901; 87340; 87389; 87491; 87591; 84443; 86376; 86592; 86765

== ENCOUNTER 2024-06-03 16:37 | Outpatient (REF) | payer OTHER, SELFPAY ==
[2024-06-03 09:02] LABS: HCG Quant, Pregnancy 1 mIU/mL (1-3)
--- OUTSIDE RECORDS SUMMARY | 2024-06-03 16:39 | XMS_ITS | Encounter Summary ---
Author Organization [facility] Address [address] [place] [address] Care Team Providers Care Rn Plastic Surgery Name Role Phone Kerry Green MD Primary Care Provider [phone] Encounter Details Date Type Department Care Team (Late st Contact Info) Description 04/30/2024 Lab Requisition [facility] Pathology & Laboratory Medicine - [address] [address] Outr Resulting Lab, Provider Social History Tobacco Use Types Packs/Day Years Used Date Smoking Tobacco: Never Assessed Comments Unknown Sex and Gender Information Value Date Recorded Sex Assigned at Not on file Legal Sex Female 16:00 EST Gender Identity Not on file Sexual Orientation Not on file documented as of this encounter Plan of Treatment Not on file documented as of this encounter Procedures Procedure Name Priority Date/Time Associated Diagnosis Comments THYROPEROXIDASE ANTIBODY Routine 04/30/2024 15:13 EDT SYPHILIS SEROLOGY Routine 04/30/2024 15: 13 EDT MEASLES IGG AB Routine 04/30/2024 15:13 EDT VARICELLA IGG ANTIBODY Routine 15:13 EDT documented in this encounter Results * THYROPEROXIDASE ANTIBODY (04/30/2024 15:13 EDT) Thyroperoxidase Ab 36 <=60 U/mL 2023 10:57 EDT [facility] Blood VENOUS BLOOD / Unknown 04/30/2024 15:13 EDT 04/30/2024 22:10 EDT us Provider Outr Resulting Lab CHEMISTRY & BLOOD GA S ORDERABLES Final Result Performing Organization Address [facility]/ZIP Co de Phone Number [facility] [address] [place] [address] * SYPHILIS SEROLOGY (04/30/2024 15:13 EDT) Syphilis Serology Negative Negative 05/01/2024 12:48 EDT [facility] Blood VENOUS BLOOD / Unknown 04/30/2024 15:13 EDT 04/30/2024 22:10 EDT us Provider Outr Resulting Lab IMMUNOLOGY AND SEROL OGY ORDERABLES Final Result Performing Organization Address [facility] Co de Phone Number [facility] [address] [place] [address] * MEASLES IGG AB (04/30/2024 15:13 EDT) Measles IgG Ab Positive See Note 05/01/2024 12:38 EDT [facility] Comment:Presence of detectab le measles virus IgG antibodies. Blood VENOUS BLOOD / Unknown 04/30/2024 15:13 EDT 04/30/2024 22:10 EDT us Provider Outr Resulting Lab IMMUNOLOGY AND SEROL OGY ORDERABLES Final Result Performing Organization Address [facility]/ZIP Co de Phone Number [facility] [address] [place] [address] * VARICELLA IGG ANTIBODY (04/30/2024 15:13 EDT) Varicella IgG Ab Positive See Note 05/01/2024 12:43 EDT [facility] Comment:Presence of detectab le Varicella Zoster virus IgG antibodies. Blood VENOUS BLOOD / Unknown 04/30/2024 15:13 EDT 04/30/2024 22:10 EDT us Provider Outr Resulting Lab IMMUNOLOGY AND SEROL OGY ORDERABLES Final Result [facility] [address] [place] [address] documented in this encounter Visit Diagnoses Not on filedocumented in this encounter Care Teams Rn Plastic Surgery Relationship Specialty Start Date End Date Kerry Green MD [address] [place] [address] PCP - General 06/11/20 documented as of this encounter
--- OUTSIDE RECORDS SUMMARY | 2024-06-03 16:39 | XMS_ITS | Clinical Summary ---
Author Organization [facility] Address [address] [place] [address] Care Team Providers Care Marine Welder Name Role Phone Kerry Green MD Primary Care Provider [phone] Encounters Date Type Department Care Team Description 06/03/2024 Lab Requisition [facility] Pathology & Laboratory [address] [address] Outr Resulting Lab, Provider 04/30/2024 Lab Requisition [facility] Pathology & Laboratory [address] [address] Outr Resulting Lab, Provider 04/30/2024 Lab Requisition [facility] Pathology Laboratory [address] [address] Outr Resulting Lab, Provider 04/30/2024 Lab Requisition [facility] Pathology Laboratory [address] [address] Outr Resulting Lab, Provider 04/30/2024 Lab Requisition [facility] Pathology & Laboratory [address] [address] Outr Resulting Lab, Provider from Last 3 Months Social History Tobacco Use Types Packs/Day Years Used Date Smoking Tobacco: Never Assessed Comments Unknown Sex and Gender Information Value Date Recorded Sex Assigned at Not on file Legal Sex Female 16:00 EST Gender Identity Not on file Sexual Orientation Not on file Plan of Treatment Health Maintenance Due Date Last Done Comments Hepatitis B Vaccine (1 of 3 - 19+ 3-dose series) 10/23 COVID-19 Vaccine (1 ) 03/10/2024 Hepatitis C Screen Completed 04/30/2024 Procedures Procedure Name Priority Date/Time Associated Diagnosis Comments THYROPEROXIDASE ANTIBODY Routine 04/30/2024 15:13 EDT SYPHILIS SEROLOGY Routine 04/30/2024 15: 13 EDT MEASLES IGG AB Routine 04/30/2024 15:13 EDT VARICELLA IGG ANTIBODY Routine 15:13 EDT HIV 1/2 ANTIGEN AND ANTIBODY, 4TH GENERATION Routine 04/30/2024 15:13 EDT HEPATITIS B CORE ANTIBODY (TOTAL) Routine 04/30/2024 15:13 EDT HEPATITIS B SURFACE ANTIGEN Routine 04/30/2024 15:13 EDT HEPATITIS C AB W REFLEX TO HCV RNA BY PCR Routine 04/30/2024 15:13 EDT CHLAMYDIA/N. GONORRHOEAE AMPLIFIED NUCLEIC ACID Routine 04/30/2024 15:13 EDT from Last 3 Months Results * THYROPEROXIDASE ANTIBODY (04/30/2024 15:13 EDT) Thyroperoxidase Ab 36 <=60 U/mL 2023 10:57 EDT [facility] Blood VENOUS BLOOD / Unknown 04/30/2024 15:13 EDT 04/30/2024 22:10 EDT us Provider Outr Resulting Lab CHEMISTRY & BLOOD GA S ORDERABLES Final Result [facility] [address] [place] [address] * SYPHILIS SEROLOGY (04/30/2024 15:13 EDT) Syphilis Serology Negative Negative 05/01/2024 12:48 EDT [facility] Blood VENOUS BLOOD / Unknown 04/30/2024 15:13 EDT 04/30/2024 22:10 EDT us Provider Outr Resulting Lab IMMUNOLOGY AND SEROL OGY ORDERABLES Final Result Performing Organization Address City/[facility]/ZIP Co de Phone Number [facility] [address] [place] [address] * CHLAMYDIA/N. GONORRHOEAE AMPLIFIED NUCLEIC ACID (04/30/2024 15:13 EDT) Neisseria gonorrhoeae Result Negative Negative 05/01/2024 12:03 EDT [facility] Chlamydia trachomatis Result Negative Negative 05/01/2024 12:03 EDT [facility] Urine URINE / Unknown 04/30/2024 1 5:13 EDT 04/30/2024 22:27 EDT Narrative [facility] - 05/01/2024 12:03 EDT A first catch urine specimen is acceptable for detection of Gonorrhea and Chlamydia, but might detect up to 10% fewer infections when compared with vaginal swab samples. us Provider Outr Resulting Lab MICROBIOLOGY - GENER AL ORDERABLES Final Result Performing Organization Address [facility] [place]/[facility] Co de Phone Number [facility] [address] [place] [address] * HEPATITIS C AB W REFLEX TO HCV RNA BY PCR (04/30/2024 15:13 EDT) Hep C Antibody Negative Negative 04/30/2024 23:48 EDT [facility] Blood VENOUS BLOOD / Unknown 04/30/2024 15:13 EDT 04/30/2024 22:10 EDT us Provider Outr Resulting Lab CHEMISTRY & BLOOD GA S ORDERABLES Final Result Performing Organization Address City/[facility]/ZIP Co de Phone Number [facility] [address] [place] [address] * MEASLES IGG AB (04/30/2024 15:13 EDT) Measles IgG Ab Positive See Note 05/01/2024 12:38 EDT [facility] Comment:Presence of detectab le measles virus IgG antibodies. Blood VENOUS BLOOD / Unknown 04/30/2024 15:13 EDT 04/30/2024 22:10 EDT us Provider Outr Resulting Lab IMMUNOLOGY AND SEROL OGY ORDERABLES Final Result [facility] [address] [place] [address] * HEPATITIS B CORE ANTIBODY (TOTAL) (04/30/2024 15:13 EDT) Hepatitis B Core Ab, Total Negative Negative 05/01/2024 10:41 EDT [facility] Blood VENOUS BLOOD / Unknown 04/30/2024 15:13 EDT 04/30/2024 22:10 EDT us Provider Outr Resulting Lab CHEMISTRY & BLOOD GA S ORDERABLES Final Result [facility] [address] [place] [address] * HEPATITIS B SURFACE ANTIGEN (04/30/2024 15:13 EDT) Hep B Surface Ag Negative Negative 05/01/2024 10:19 EDT [facility] Blood VENOUS BLOOD / Unknown 04/30/2024 15:13 EDT 04/30/2024 22:10 EDT us Provider Outr Resulting Lab CHEMISTRY & BLOOD GA S ORDERABLES Final Result [facility] [address] [place] [address] * VARICELLA IGG ANTIBODY (04/30/2024 15:13 EDT) Varicella IgG Ab Positive See Note 05/01/2024 12:43 EDT [facility] Comment:Presence of detectab le Varicella Zoster virus IgG antibodies. Blood VENOUS BLOOD / Unknown 04/30/2024 15:13 EDT 04/30/2024 22:10 EDT us Provider Outr Resulting Lab IMMUNOLOGY AND SEROL OGY ORDERABLES Final Result Performing Organization Address [facility]/ZIP Co de Phone Number [facility] [address] [place] [address] * HIV 1/2 ANTIGEN AND ANTIBODY, 4TH GENERATION (04/30/2024 15:13 EDT) HIV 1 and 2 Antibody/p24 Antigen, 4th Generation Negative Negative 04/30/2024 23:52 EDT [facility] Comment:If acute HIV-1 infec tion is suspected in a high risk patient, submit plasma specimen for HIV-1 RNA quantitation test. Blood VENOUS BLOOD / Unknown 04/30/2024 15:13 EDT 04/30/2024 22:10 EDT Narrative [facility] - 04/30/2024 23:52 EDT Fourth Generation assay performed on the Siemens Centaur XPT. us Provider Outr Resulting Lab IMMUNOLOGY AND SEROL OGY ORDERABLES Final Result Performing Organization Address City/[facility]/ZIP Co de Phone Number [facility] [address] [place] [address] from Last 3 Months Insurance [employer] Care Teams Marine Welder Relationship Specialty Start Date End Date Kerry Green MD [address] [place] [address] PCP - General 06/11/20
--- OUTSIDE RECORDS SUMMARY | 2024-06-03 16:39 | XMS_ITS | Encounter Summary ---
Author Organization [facility] Address [address] [place] [address] Care Team Providers Care Integration Solution Architect Name Role Phone Kerry Green MD Primary Care Provider [phone] Encounter Details Date Type Department Care Team (Late st Contact Info) Description 05/28/2021 Lab Requisition [facility] Pathology & Laboratory Medicine - [address] [address] Outr Resulting Lab, Provider Social History Tobacco [...] Priority Date/Time Associated Diagnosis Comments ZZCOVID-19 TEST [facility] PCR Today 05/28/2021 9:05 EST COVID-19 TESTING Routine 05/28/2021 9:05 EST documented in this encounter Results * COVID-19 TEST [facility] PCR (05/28/2021 9:05 EST) Swab 05/28/2021 9:05 EST 05/28/2021 20:11 EST us Provider Outr Resulting Lab MICROBIOLOGY - GENER AL ORDERABLES Final Result [facility] [address] [place] [address] * COVID-19 TESTING (05/28/2021 9:05 EST) COVID-19 rt-PCR Result Negative Negative 05/28/2021 23:38 EST [facility] Comment: This test has not [...] history, and epidemiological information. Performed on the [place] [employer] Fusion instrument Performing Lab [place] [facility] Lab 05/28/2021 23:38 EST [facility] Swab 05/28/2021 9:05 EST 05/28/2021 20:11 EST us Provider Outr Resulting Lab MICROBIOLOGY - GENER AL ORDERABLES Final Result [facility] [address] [place] [address] documented in this encounter Visit Diagnoses Not on filedocumented in this encounter Care Teams Integration Solution Architect Relationship Specialty Start Date End Date Kerry Green MD [address] [place] [address] PCP - General 06/11/20 documented as of this encounter
--- OUTSIDE RECORDS SUMMARY | 2024-06-03 16:39 | XMS_ITS | Referral Summary ---
Author Organization [facility] Address [address] [place] [address] Care Team Providers Care Automobile Parker Name Role Phone Kerry Green MD Primary Care Provider [phone] Encounters Date Type Department Care Team Description 06/03/2024 Lab Requisition [facility] Pathology & Laboratory [address] [address] Outr Resulting Lab, Provider 04/30/2024 Lab Requisition [facility] Pathology & Laboratory [address] [address] Outr Resulting Lab, Provider 04/30/2024 Lab Requisition [facility] Pathology Laboratory [address] [address] Outr Resulting Lab, Provider 04/30/2024 Lab Requisition [facility] Pathology & Laboratory [address] [address] Outr Resulting Lab, Provider 04/30/2024 Lab Requisition [facility] Pathology & Laboratory [address] [address] Outr Resulting Lab, Provider from Last 3 Months Social History Tobacco Use Types Packs/Day Years Used Date Smoking Tobacco: Never Assessed Comments Unknown Sex and Gender Information Value Date Recorded Sex Assigned at Not on file Legal Sex Female 16:00 EST Gender Identity Not on file Sexual Orientation Not on file Plan of Treatment Not on file Procedures Procedure Name Priority Date/Time Associated Diagnosis [...] Ab 36 <=60 U/mL 2023 10:57 EDT [facility] Blood VENOUS BLOOD / Unknown 04/30/2024 15:13 EDT 04/30/2024 22:10 EDT us Provider Outr Resulting Lab CHEMISTRY & BLOOD GA S ORDERABLES Final Result [facility] [address] [place] [address] * SYPHILIS SEROLOGY (04/30/2024 15:13 EDT) Syphilis Serology Negative Negative 05/01/2024 12:48 EDT [facility] Blood VENOUS BLOOD / Unknown 04/30/2024 15:13 EDT 04/30/2024 22:10 EDT us Provider Outr Resulting Lab IMMUNOLOGY AND SEROL OGY ORDERABLES Final Result [facility] [address] [place] [address] * CHLAMYDIA/N. GONORRHOEAE AMPLIFIED NUCLEIC ACID (04/30/2024 15:13 EDT) Neisseria gonorrhoeae Result Negative Negative 05/01/2024 12:03 EDT [facility] Chlamydia trachomatis Result Negative Negative 05/01/2024 12:03 EDT [facility] Urine URINE / Unknown 04/30/2024 1 5:13 EDT 04/30/2024 22:27 EDT Narrative [facility] - 05/01/2024 12:03 EDT A first catch urine specimen is acceptable for detection of Gonorrhea and Chlamydia, but might detect up to 10% fewer infections when compared with vaginal swab samples. us Provider Outr Resulting Lab MICROBIOLOGY - GENER AL ORDERABLES Final Result Performing Organization Address [facility]/ZIP Co de Phone Number [facility] [address] [place] [address] * HEPATITIS C AB W REFLEX TO HCV RNA BY PCR (04/30/2024 15:13 EDT) Hep C Antibody Negative Negative 04/30/2024 23:48 EDT [facility] Blood VENOUS BLOOD / Unknown 04/30/2024 15:13 EDT 04/30/2024 22:10 EDT us Provider Outr Resulting Lab CHEMISTRY & BLOOD GA S ORDERABLES Final Result Performing Organization Address City/[facility]/ZIP Co de Phone Number [facility] [address] [place], [place] [id number] * MEASLES IGG AB (04/30/2024 15:13 EDT) Measles IgG Ab Positive See Note 05/01/2024 12:38 EDT [facility] Comment:Presence of detectab le measles virus IgG antibodies. Blood VENOUS BLOOD / Unknown 04/30/2024 15:13 EDT 04/30/2024 22:10 EDT us Provider Outr Resulting Lab IMMUNOLOGY AND SEROL OGY ORDERABLES Final Result Performing Organization Address [facility]/ZIP Co de Phone Number [facility] [address] [place] [address] * HEPATITIS B CORE ANTIBODY (TOTAL) (04/30/2024 15:13 EDT) Hepatitis B Core Ab, Total Negative Negative 05/01/2024 10:41 EDT [facility] Blood VENOUS BLOOD / Unknown 04/30/2024 15:13 EDT 04/30/2024 22:10 EDT us Provider Outr Resulting Lab CHEMISTRY & BLOOD GA S ORDERABLES Final Result Performing Organization Address [facility]/ZIP Co de Phone Number [facility] [address] [place] [address] * HEPATITIS B SURFACE ANTIGEN (04/30/2024 15:13 EDT) Hep B Surface Ag Negative Negative 05/01/2024 10:19 EDT [facility] Blood VENOUS BLOOD / Unknown 04/30/2024 15:13 EDT 04/30/2024 22:10 EDT us Provider Outr Resulting Lab CHEMISTRY & BLOOD GA S ORDERABLES Final Result Performing Organization Address [facility]/ZIP Co de Phone Number [facility] [address] [place] [address] * VARICELLA IGG ANTIBODY (04/30/2024 15:13 EDT) Varicella IgG Ab Positive See Note 05/01/2024 12:43 EDT [facility] Comment:Presence of detectab le Varicella Zoster virus IgG antibodies. Blood VENOUS BLOOD / Unknown 04/30/2024 15:13 EDT 04/30/2024 22:10 EDT us Provider Outr Resulting Lab IMMUNOLOGY AND SEROL OGY ORDERABLES Final Result Performing Organization Address [facility] Co de Phone Number [facility] [address] [place] [address] * HIV 1/2 ANTIGEN AND ANTIBODY, 4TH GENERATION (04/30/2024 15:13 EDT) [facility] HIV 1 and 2 Antibody/p24 Antigen, 4th Generation Negative Negative 04/30/2024 23:52 EDT [facility] Comment:If acute HIV-1 infec tion is suspected in a high risk patient, submit plasma specimen for HIV-1 RNA quantitation test. Blood VENOUS BLOOD / Unknown 04/30/2024 15:13 EDT 04/30/2024 22:10 EDT Narrative [facility] - 04/30/2024 23:52 EDT Fourth Generation assay performed on the Siemens Centaur XPT. us Provider Outr Resulting Lab IMMUNOLOGY AND SEROL OGY ORDERABLES Final Result Performing Organization Address [facility] Co de Phone Number [facility] [address] [place] [address] from Last 3 Months Insurance [employer] Care Teams Automobile Parker Relationship Specialty Start Date End Date Kerry Green MD [address] [place] [id number] PCP - General 06/11/20
--- OUTSIDE RECORDS SUMMARY | 2024-06-03 16:39 | XMS_ITS | Encounter Summary ---
Author Organization [facility] Address [address] [place] [address] Care Team Providers Care Electronics Commodity Manager Name Role Phone Kerry Green MD Primary Care Provider [phone] Encounter Details Date Type Department Care Team (Late st Contact Info) Description 04/30/[address] [facility] Pathology & Laboratory Medicine - [address] [address] Outr Resulting Lab, Provider Social History Tobacco [...] Procedure Name Priority Date/Time Associated Diagnosis Comments CHLAMYDIA/N. GONORRHOEAE AMPLIFIED NUCLEIC ACID Routine 04/30/2024 15:13 EDT documented in this encounter Results * CHLAMYDIA/N. GONORRHOEAE AMPLIFIED NUCLEIC ACID (04/30/2024 15:13 EDT) Neisseria gonorrhoeae Result Negative Negative 05/01/2024 12:03 EDT [facility] Chlamydia trachomatis Result Negative Negative 05/01/2024 12:03 EDT [facility] Urine URINE / Unknown 04/30/2024 1 5:13 EDT 04/30/2024 22:27 EDT Narrative [facility] - 05/01/2024 12:03 EDT A first catch urine specimen is acceptable for detection of Gonorrhea and Chlamydia, but might detect up to 10% fewer infections when compared with vaginal swab samples. us Provider Outr Resulting Lab MICROBIOLOGY - GENER AL ORDERABLES Final Result [facility] [address] [place], [place] [address] documented in this encounter Visit Diagnoses Not on filedocumented in this encounter Care Teams Electronics Commodity Manager Relationship Specialty Start Date End Date Kerry Green MD [address] [place] [id number] PCP - General 06/11/20 documented as of this encounter
--- OUTSIDE RECORDS SUMMARY | 2024-06-03 16:39 | XMS_ITS | Encounter Summary ---
Author Organization [facility] Address [address] [place] [address] Care Team Providers Care Dealmaker Name Role Phone Kerry Green MD Primary Care Provider [phone] Encounter Details Date Type Department Care Team (Late st Contact Info) Description 09/23/2022 Lab Requisition [facility] Pathology & Laboratory Medicine - [address] [address] Hiral Paz MD [address] [place] [address] [place] [address] Encounter for other general examination [...] management options, if applicable. 09/27/2022 10:39 EDT [facility] Final Diagnosis A. 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 See comment. 09/27/2022 10:39 [facility] Diagnosis Comment Focal squamous intraepithelial neoplasia is noted, however the focus is small and poorly oriented. The focus is absent on IHC stains, therefore high-grade dysplasia cannot be entirely excluded. Immunoperoxidase stains were performed on this case to further characterize the lesion. ANTIBODY(CLONE)(BL OCK):RESULT P16 (E6H4TM, [place]) (A1): Atypical squamous epithelium absent on IHC; [...] performance characteristics have been determined by [facility] and/or by the referring laboratory. [...] high complexity clinical laboratory testing. 09/27/2022 10:39 [facility] Attestation There was significant resident/fellow involvement in the diagnostic evaluation of this case. By the signature below, the attending physician certifies that they have personally conducted a gross and/or microscopic examination of the described specimens and rendered or confirmed the above diagnosis. 09/27/2022 10:39 [facility] at 1039 Clinical History LSIL 09/27/2022 10:39 [facility] Gross Description A. Received in formalin, on a Histologic SFT-100 device, labelled with proper patient identification (initials C, S) and cervical Bx is a 0.2 x 0.1 x 0.1 cm aggregate of das-white soft tissue. The specimen is entirely submitted in A1. LETICIA FREEMAN(ASCP) 09/23/2022 10:14 09/27/2022 10:39 EDT [facility] Resident/Robby w: Patti Pike MD 09/27/2022 10:39 EDT [facility] Performing Lab [facility] 10:39 EDT [facility] Scanned Images 09/27/2022 10:39 EDT [facility] Tissue ENTIRE WALL OF CERVIX / Unknown 09/22/2022 15:30 EDT 09/23/2022 8:10 EDT us Hiral Paz MD PATHOLOGY ORDERABLES Final R esult [facility] [address] [place] [address] documented in this encounter Visit Diagnoses Diagnosis Encounter for other general examination documented in this encounter Care Teams Dealmaker Relationship Specialty Start Date End Date Kerry Green MD [address] [place] [address] PCP - General 06/11/20 documented as of this encounter
--- OUTSIDE RECORDS SUMMARY | 2024-06-03 16:39 | XMS_ITS | Encounter Summary ---
Author Organization [facility] Address [address] [place] [address] Care Team Providers Care Mastic Sprayer Name Role Phone Kerry Green MD Primary Care Provider [phone] Encounter Details Date Type Department Care Team (Late st Contact Info) Description 09/27/2023 Lab Requisition [facility] Pathology & Laboratory Medicine - [address] [id number] Outr Resulting Lab, Provider Social History Tobacco [...] 8.8 See Note mIU/mL 09/27/2023 18:47 EDT [facility] Blood VENOUS BLOOD / Unknown 09/26/2023 15:44 EDT 09/27/2023 16:58 EDT Narrative [facility] - 09/27/2023 18:47 EDT NOTE: Female [facility] Reference Ranges (Menstruating): PHYSIOLOGICAL STATUS ? REFERENCE RANGE ? Follicular (-12 to -4 days): ?? 2.5 - 10.2 mIU/mL Midcycle (-3 to +2 days): ?3.4 - 33.4 mIU/mL Luteal (+4 to +12 days): ? 1.5 - 9.1 mIU/mL Postmenopausal: ?23.0 - 116.3 mIU/mL Reference Ranges for pediatric non-menstruating female patients have not been established. us Provider Outr Resulting Lab CHEMISTRY & BLOOD GA S ORDERABLES Final Result [facility] [address] [place] [address] * PROGESTERONE (09/26/2023 15:44 EDT) Progesterone <0.2 See Table ng/mL 09/27/2023 18:26 EDT [facility] Comment: Female Reference Ranges: PHYSIOLOGICAL [...] Unknown 09/26/2023 15:44 EDT 09/27/2023 16:58 EDT us Provider Outr Resulting Lab CHEMISTRY & BLOOD GA S ORDERABLES Final Result Performing Organization Address City/State/[facility] Co de Phone Number [facility] [address] [place] [address] documented in this encounter Visit Diagnoses Not on filedocumented in this encounter Care Teams Mastic Sprayer Relationship Specialty Start Date End Date Kerry Green MD [address] [place] [address] PCP - General 06/11/20 documented as of this encounter
--- OUTSIDE RECORDS SUMMARY | 2024-06-03 16:39 | XMS_ITS | Encounter Summary ---
Author Organization [facility] Address [address] [place] [address] Care Team Providers Care Edge Finisher Name Role Phone Kerry Green MD Primary Care Provider [phone] Encounter Details Date Type Department Care Team (Late st Contact Info) Description 09/29/2023 Lab Requisition [facility] Pathology & Laboratory Medicine - [address] [address] Shital Villela, SHOT BLASTER [address] [place] [phone] Encounter for other general examination Social History [...] System with Manual Evaluation 10/03/2023 13:55 EDT [facility] Specimen Adequacy Satisfactory for Evaluation - transformation zone component present 10/03/2023 13:55 EDT [facility] General Categorization Negative for intraepithelial lesion or malignancy 10/03/2023 13:55 EDT [facility] Attestation . 10/03/2023 13:55 EDT [facility] at 1355 Clinical History See below 10/03/19 13:55 EDT [facility] Performing Lab [facility] 10/03/2023 13:55 EDT [facility] Scanned Images 10/03/2023 13:55 EDT [facility] Pap Test CERVIX UTERI STRUCTURE / Unknown 09/26/2023 15:15 EDT 09/29/2023 9:41 EDT us [place] SHOT BLASTER PATHOLOGY ORDERABLES Eri l Result [facility] [address] [place] [address] documented in this encounter Visit Diagnoses Diagnosis Encounter for other general examination documented in this encounter Care Teams Edge Finisher Relationship Specialty Start Date End Date Kerry Green MD [address] [place] [address] PCP - General 06/11/20 documented as of this encounter
--- OUTSIDE RECORDS SUMMARY | 2024-06-03 16:39 | XMS_ITS | Encounter Summary ---
Author Organization [facility] Address [address] [place] [address] Care Team Providers Care Rehabilitation Construction Specialist Name Role Phone Unknown, Provider Primary Care Provider Unava ilable Encounter Details Date Type Department Care Team (Late st Contact Info) Description 06/26/2015 Results Only [facility]- [facility] [phone] Dillon Serrano, [address] [phone] Social History Tobacco Use Types Packs/Day Years [...] ? SMILEY JOHN ? Accession #: ? [id number] : ? 1995 (Age: 19) ??F ?Collect [...] Report Date: ??07/01/2015 14:22 End of Report [facility] 06/26/2015 06/29/2015 us Dillon Serrano [facility] PATHOLOGY ORDERABLES Fin al Result [facility] [address] [place] [address] documented in this encounter Visit Diagnoses Not on filedocumented in this encounter Care Teams Rehabilitation Construction Specialist Relationship Specialty Start Date End Date Unknown, Provider, PCP - General 06/26/15 06/10/20 documented as of this encounter
--- OUTSIDE RECORDS SUMMARY | 2024-06-03 16:39 | XMS_ITS | Encounter Summary ---
Author Organization [facility] Address [address] [place] [address] Care Team Providers Care Gear Changer Name Role Phone Kerry Green MD Primary Care Provider [phone] Encounter Details Date Type Department Care Team (Late st Contact Info) Description 07/16/2020 Lab Requisition [facility] Pathology & Laboratory Medicine - [address] [address] Elissa Cesar MD [address] [place] [address],[address] [address] Encounter for other general examination Social History [...] epithelial change. See comment. 07/22/2020 16:34 EST [facility] Diagnosis Comment The prior Pap test ([id number]) has been reviewed and we agree with the diagnosis of low grade squamous intraepithelial lesion (LSIL). The atypical cells present on the Pap test are not present on the cervical biopsy or endocervical curettage. Deeper sections have been evaluated. 07/22/2020 16:34 [facility] Attestation There was significant resident/fellow involvement in the diagnostic evaluation of this case. By the signature below, the attending physician certifies that they have personally conducted a gross and/or microscopic examination of the described specimens and rendered or confirmed the above diagnosis. 07/22/2020 16:34 [facility] at 1634 Clinical History LSIL +HPV 07/22/2020 16:34 [facility] Gross Description A. [...] B1. LETICIA FREEMAN(ASCP) 07/16/2020 16:34 07/22/2020 16:34 [facility] Resident/Robby w: Huber Redman MD 07/22/2020 16:34 [facility] Performing Lab [facility] 16:34 [facility] Scanned Images 07/22/2020 16:34 [facility] Tissue ENTIRE WALL OF CERVIX / Unknown 07/16/2020 10:10 EST 07/16/2020 15:40 EST Tissue specimen (specimen) CERVIX UTERI STRUCTURE / Unknown 07/16/2020 10:10 EST 07/16/2020 15:40 EST us Elissa Cesar MD PATHOLOGY ORDERABLES Final Res ult [facility] [address] [place] [address] documented in this encounter Visit Diagnoses Diagnosis Encounter for other general examination documented in this encounter Care Teams Gear Changer Relationship Specialty Start Date End Date Kerry Green MD [address] [place] [address] PCP - General 06/11/20 documented as of this encounter
--- OUTSIDE RECORDS SUMMARY | 2024-06-03 16:39 | XMS_ITS | Encounter Summary ---
Author Organization [facility] Address [address] [place] [address] Care Team Providers Care Cook Helper Meat Name Role Phone Kerry Green MD Primary Care Provider [phone] Encounter Details Date Type Department Care Team (Late st Contact Info) Description 09/01/2022 Lab Requisition [facility] Pathology & Laboratory Medicine - [address] [address] Shital Villela, PARTS COORDINATOR [address] [place] [phone] Encounter for other general examination Social History [...] System with Manual Evaluation 09/14/2022 8:20 EST [facility] Specimen Adequacy Satisfactory for Evaluation - transformation zone component present 09/14/2022 8:20 EST [facility] General Categorization Epithelial Cell Abnormality 09/14/2022 8:20 EST [facility] Descriptive Diagnosis 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 09/14/2022 8:[address] [facility] Educational Comments [facility] recommends following the ASCCP's management guidelines which may be found at www.asccp.org 09/14/2022 8:[address] [facility] Attestation By the signature below, the attending physician certifies that they have personally conducted a gross and/or microscopic examination of the described specimens and rendered or confirmed the above diagnosis. 09/14/2022 8:[address] [facility] at 0820 Clinical History See below 09/15/19 8:[address] [facility] Performing Lab [facility] 09/14/2022 8:[address] [facility] Scanned Images 09/14/2022 8:[address] [facility] Papanicolaou smear specimen (specimen) CERVIX UTERI STRUCTURE / Unknown 08/31/2022 8:30 EST 09/01/2022 9:38 EST us Shital Villela PARTS COORDINATOR PATHOLOGY ORDERABLES Eri l Result [facility] [address] [place] [address] documented in this encounter Visit Diagnoses Diagnosis Encounter for other general examination documented in this encounter Care Teams Cook Helper Meat Relationship Specialty Start Date End Date Kerry Green MD [address] [place] [address] PCP - General 06/11/20 documented as of this encounter
--- OUTSIDE RECORDS SUMMARY | 2024-06-03 16:39 | XMS_ITS | Encounter Summary ---
Author Organization [facility] Address [address] [place] [address] Care Team Providers Care Marklogic Developer Name Role Phone Unknown, Provider Primary Care Provider Unava ilable Encounter Details Date Type Department Care Team (Late st Contact Info) Description 01/03/2019 Results Only [facility] [place] [phone] Dillon Serrano, [address] [id number] Social History Tobacco Use Types Packs/Day Years [...] ? SMILEY JOHN ? Accession #: ? [id number] : ? 1995 (Age: 23) ??F ?Collect [...] Report Date: ??01/09/2019 12:37 End of Report [facility] 01/03/2019 01/04/2019 us Dillon Serrano [facility] PATHOLOGY ORDERABLES Fin al Result [facility] [address] [place] [address] documented in this encounter Visit Diagnoses Not on filedocumented in this encounter Care Teams Marklogic Developer Relationship Specialty Start Date End Date Unknown, Provider, PCP - General 06/26/15 06/10/20 documented as of this encounter
--- OUTSIDE RECORDS SUMMARY | 2024-06-03 16:39 | XMS_ITS | Encounter Summary ---
Author Organization [facility] Address [address] [place] [address] Care Team Providers Care Entomology Professor Name Role Phone Kerry Green MD Primary Care Provider [phone] Encounter Details Date Type Department Care Team (Late st Contact Info) Description 08/23/2021 Lab Requisition [facility] Pathology & Laboratory Medicine - [address] [address] Lesley Mendoza, [address] [place] [phone] Encounter for other general examination Social History [...] System with Manual Evaluation 08/31/2021 15:12 EST [facility] Specimen Adequacy Satisfactory for Evaluation - transformation zone component absent 08/31/2021 15:12 EST [facility] General Categorization Negative for intraepithelial lesion or malignancy 08/31/2021 15:12 EST [facility] Attestation . 08/31/2021 15:12 EST [facility] at 1512 Clinical History See below 08/31/19 15:12 EST [facility] Performing Lab [facility] 08/31/2021 15:12 EST [facility] Scanned Images 08/31/2021 15:12 EST [facility] Papanicolaou smear specimen (specimen) CERVIX UTERI STRUCTURE / Unknown 08/20/2021 11:30 EST 08/23/2021 10:52 EST Lesley Mendoza SOLE MOLDING MACHINE OPERATOR PATHOLOGY ORDERABLES Final R esult [facility] [address] [place] [address] documented in this encounter Visit Diagnoses Diagnosis Encounter for other general examination documented in this encounter Care Teams Entomology Professor Relationship Specialty Start Date End Date Kerry Green MD [address] [place] [address] PCP - General 06/11/20 documented as of this encounter
--- OUTSIDE RECORDS SUMMARY | 2024-06-03 16:39 | XMS_ITS | Encounter Summary ---
Author Organization [facility] Address [address] [place] [address] Care Team Providers Care Focus Puller Name Role Phone Kerry Green MD Primary Care Provider [phone] Encounter Details Date Type Department Care Team (Late st Contact Info) Description 06/09/2021 Lab Requisition [facility] Pathology & Laboratory Medicine - [address] [address] Outr Resulting Lab, Provider Social History Tobacco [...] Comments ZZCOVID-19 TEST [facility] PCR Today 06/09/2021 10:15 EST COVID-19 TESTING Routine 06/09/2021 10:1 5 EST documented in this encounter Results * COVID-19 TEST [facility] PCR (06/09/2021 10:15 EST) Swab 06/09/2021 10:1 5 EST 06/09/2021 22:40 EST us Provider Outr Resulting Lab MICROBIOLOGY - GENER AL ORDERABLES Final Result [facility] [address] [place] [address] * COVID-19 TESTING (06/09/2021 10:15 EST) COVID-19 rt-PCR Result Negative Negative 06/10/2021 2:20 EST [facility] Comment: This test has not [...] history, and epidemiological information. Performed on the [employer] Fusion instrument Performing Lab [facility] 06/10/2021 2:20 EST [facility] Swab 06/09/2021 10:1 5 EST 06/09/2021 22:40 EST us Provider Outr Resulting Lab MICROBIOLOGY - GENER AL ORDERABLES Final Result [facility] [address] [place] [address] documented in this encounter Visit Diagnoses Not on filedocumented in this encounter Care Teams Focus Puller Relationship Specialty Start Date End Date Kerry Green MD [address] [place] [address] PCP - General 06/11/20 documented as of this encounter
--- OUTSIDE RECORDS SUMMARY | 2024-06-03 16:39 | XMS_ITS | Encounter Summary ---
Author Organization [facility] Address [address] [place] [address] Care Team Providers Care Concaving Machine Operator Name Role Phone Kerry Green MD Primary Care Provider [phone] Encounter Details Date Type Department Care Team (Late st Contact Info) Description 06/12/2020 Lab Requisition [facility] Pathology & Laboratory Medicine - [address] [address] [address] [place] [phone] Encounter for other general examination Social History [...] PCR Positive( A) Negative 06/25/2020 14:52 EST [facility] Comment:E6 OR E7 mRNA from o ne or more types of HPV types 16,18,31,33,35,39,45,51,52,56,58,59,66, and 68 is detected by reproductive healthcare assistant mediated amplification. High and intermediate risk HPV types are associated with most squamous intraepithelial lesions and cervical cancers. Papanicolaou smear specimen (specimen) CERVIX UTERI STRUCTURE / Unknown 06/11/2020 14:00 EST 06/18/2020 11:21 EST Lesley Mendoza ORTHOPHOTOGRAPHY TECHNICIAN MICROBIOLOGY - GENERAL ORDER HAM Final Result [facility] [address] [place] [address] * PAP TEST (06/11/2020 14:00 EST) Specimens A. Cervix and/or Endocervix , ThinPrep Imaging System with Manual Evaluation 06/25/2020 14:52 [facility] Specimen Adequacy Satisfactory for Evaluation - transformation zone component present 06/25/2020 14:52 [facility] General Categorization Epithelial Cell Abnormality 06/25/2020 14:52 [facility] Descriptive Diagnosis 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 06/25/2020 14:52 [facility] Educational Comments [facility] recommends following ASCCP's 2012 Updated Consensus Guidelines for the Management of Abnormal Cervical Cancer Screening Tests and Cancer Precursors (JLGTD, 2013; 17(5):S1-S27). Consensus guidelines are available online at www.asccp.org. 06/25/2020 14:52 [facility] Attestation By the signature below, the attending physician certifies that they have personally conducted a gross and/or microscopic examination of the described specimens and rendered or confirmed the above diagnosis. 06/25/2020 14:52 [facility] at 1452 Clinical History See below 06/25/20 14:52 [facility] HPV The result for the Human Papillomavirus (HPV) Detection-High Risk Types is Positive . E6 OR E7 mRNA from one or more types of HPV types 16,18,31,33,35,39 ,45,51,52,56,58,5 9,66, and 68 is detected by reproductive healthcare assistant mediated amplification. High and intermediate risk HPV types are associated with most squamous intraepithelial lesions and cervical cancers. Testing was performed on specimen [id number] and was resulted on 06/25/2020 1449 EST by LEXY, LAB INSTRUMENT RESULTS IN 06/25/2020 14:52 EST [facility] Performing Lab [facility] 06/25/2020 14:52 EST [facility] Scanned Images 06/25/2020 14:52 EST [facility] Papanicolaou smear specimen (specimen) CERVIX UTERI STRUCTURE / Unknown 06/11/2020 14:00 EST 06/12/2020 9:55 EST us Lesley Mendoza ORTHOPHOTOGRAPHY TECHNICIAN PATHOLOGY ORDERABLES Final R esult [facility] [address] [place] [address] documented in this encounter Visit Diagnoses Diagnosis Encounter for other general examination documented in this encounter Care Teams Concaving Machine Operator Relationship Specialty Start Date End Date Kerry Green MD [address] [place] [address] PCP - General 06/11/20 documented as of this encounter
--- OUTSIDE RECORDS SUMMARY | 2024-06-03 16:39 | XMS_ITS | Encounter Summary ---
Author Organization [facility] Address [address] [place] [address] Care Team Providers Care Auto Damage Adjuster Name Role Phone Kerry Green MD Primary Care Provider Encounter Details Date Type Department Care Team (Late st Contact Info) Description 04/30/2024 Lab Requisition [facility] Pathology & Laboratory Medicine - [address] [phone] Outr Resulting Lab, Provider Social History Tobacco [...] Procedure Name Priority Date/Time Associated Diagnosis Comments HIV 1/2 ANTIGEN AND ANTIBODY, 4TH GENERATION Routine 04/30/2024 15:13 EDT documented in this encounter Results * HIV 1/2 ANTIGEN AND ANTIBODY, 4TH [...] Result [facility] [address] [place], [place] [address] documented in this encounter Visit Diagnoses Not on filedocumented in this encounter Care Teams Auto Damage Adjuster Relationship Specialty Start Date End Date Kerry Green MD [address] [place] [address] PCP - General 06/11/20 documented as of this encounter
--- OUTSIDE RECORDS SUMMARY | 2024-06-03 16:39 | XMS_ITS | Encounter Summary ---
Author Organization [facility] Address [address] [place] [address] Care Team Providers Care Instructor Robotics Name Role Phone Kerry Green MD Primary Care Provider [phone] Encounter Details Date Type Department Care Team (Late st Contact Info) Description 04/30/2024 Lab Requisition [facility] Pathology & Laboratory Medicine - [address] [address] Outr Resulting Lab, Provider Social History Tobacco [...] Procedure Name Priority Date/Time Associated Diagnosis Comments HEPATITIS C AB W REFLEX TO HCV RNA BY PCR Routine 04/30/2024 15:13 EDT HEPATITIS B CORE ANTIBODY (TOTAL) Routine 04/30/2024 15:13 EDT HEPATITIS B SURFACE ANTIGEN Routine 04/30/2024 15:13 EDT documented in this encounter Results * HEPATITIS B CORE ANTIBODY (TOTAL) (04/30/2024 15:13 EDT) Hepatitis B Core Ab, Total Negative Negative 05/01/2024 10:41 EDT [facility] Blood VENOUS BLOOD / Unknown 04/30/2024 15:13 EDT 04/30/2024 22:10 EDT us Provider Outr Resulting Lab CHEMISTRY & BLOOD GA S ORDERABLES Final Result Performing Organization Address [facility]/ZIP Co de Phone Number [facility] [address] [place], [place] [address] * HEPATITIS B SURFACE ANTIGEN (04/30/2024 15:13 EDT) Hep B Surface Ag Negative Negative 05/01/2024 10:19 EDT [facility] Blood VENOUS BLOOD / Unknown 04/30/2024 15:13 EDT 04/30/2024 22:10 EDT us Provider Outr Resulting Lab CHEMISTRY & BLOOD GA S ORDERABLES Final Result Performing Organization Address [facility] de Phone Number [facility] [address] [place] [address] * HEPATITIS C AB W REFLEX TO HCV RNA BY PCR (04/30/2024 15:13 EDT) Hep C Antibody Negative Negative 04/30/2024 23:48 EDT [facility] Blood VENOUS BLOOD / Unknown 04/30/2024 15:13 EDT 04/30/2024 22:10 EDT us Provider Outr Resulting Lab CHEMISTRY & BLOOD GA S ORDERABLES Final Result Performing Organization Address [facility] Co de Phone Number [facility] [address] [place], [place] [id number] documented in this encounter Visit Diagnoses Not on filedocumented in this encounter Care Teams Instructor Robotics Relationship Specialty Start Date End Date Kerry Green MD [address] [place] [address] PCP - General 06/11/20 documented as of this encounter
--- OUTSIDE RECORDS SUMMARY | 2024-06-03 16:39 | XMS_ITS | Encounter Summary ---
Author Organization [facility] Address [address] [place] [address] Care Team Providers Care Phlebotomy Lab Assistant Name Role Phone Kerry Green MD Primary Care Provider [phone] Encounter Details Date Type Department Care Team (Late st Contact Info) Description 06/03/2024 Lab Requisition [facility] Pathology & Laboratory Medicine - [address] [address] Outr Resulting Lab, Provider Social History Tobacco [...] Name Type Priority Associated Diagnoses Date /Time PROGESTERONE Lab Routine 06/03/2024 7 :48 EST documented as of this encounter Visit Diagnoses Not on filedocumented in this encounter Care Teams Phlebotomy Lab Assistant Relationship Specialty Start Date End Date Kerry Green MD [address] [place] [address] PCP - General 06/11/20 documented as of this encounter
[2024-06-03 17:43] LABS: Progesterone 0.3 ng/mL (See Table)
== END 2024-06-03 16:38 | disposition home or self-care (01) ==
LOC: LBN 16:37
PROVIDERS: PCP Pediatrics Adolescent Medicine; Visit Provider Nurse Practitioner Family
DX: N97.9 Female infertility, unspecified (principal)
CPT/HCPCS: 84144; 84702

== ENCOUNTER 2024-06-28 12:46 | Outpatient (CLI) | payer OTHER, SELFPAY ==
[2024-06-28 07:39] LABS: HCG Quant, Pregnancy < 1 mIU/mL (1-3)
--- OUTSIDE RECORDS SUMMARY | 2024-06-28 12:57 | XMS_ITS | Encounter Summary ---
Author Organization [facility] Address [address] [place] [address] Care Team Providers Care Content Developer Name Role Phone Kerry Green MD Primary Care Provider [phone] Encounter Details Date Type Department Care Team (Late st Contact Info) Description 09/29/2023 Lab Requisition [facility] Pathology & Laboratory Medicine - [address] [address] Shital Villela, SPINNING ROOM WORKER [address] [place] [phone] Encounter for other general examination Social History [...] System with Manual Evaluation 10/03/2023 13:55 EDT [facility] Specimen Adequacy Satisfactory for Evaluation - transformation zone component present 10/03/2023 13:55 EDT [facility] General Categorization Negative for intraepithelial lesion or malignancy 10/03/2023 13:55 EDT [facility] Attestation . 10/03/2023 13:55 EDT [facility] at 1355 Clinical History See below 10/03/19 13:55 EDT [facility] Performing Lab [facility] 10/03/2023 13:55 EDT [facility] Scanned Images 10/03/2023 13:55 EDT [facility] Pap Test CERVIX UTERI STRUCTURE / Unknown 09/26/2023 15:15 EDT 09/29/2023 9:41 EDT us Eganphoenix Villela SPINNING ROOM WORKER PATHOLOGY ORDERABLES Eri l Result [facility] [address] [place] [address] documented in this encounter Visit Diagnoses Diagnosis Encounter for other general examination documented in this encounter Care Teams Content Developer Relationship Specialty Start Date End Date Kerry Green MD [address] [place] [id number] PCP - General 06/11/20 documented as of this encounter
--- OUTSIDE RECORDS SUMMARY | 2024-06-28 12:57 | XMS_ITS | Encounter Summary ---
Author Organization [facility] Address [address] [place] [address] Care Team Providers Care Windows Vmware Engineer Name Role Phone Kerry Green MD Primary Care Provider [phone] Encounter Details Date Type Department Care Team (Late st Contact Info) Description 09/23/20[address] Lab Re[address] [facility] Pathology & Laboratory Medicine - [address] [address] Hiral Paz MD [address] [address] [place] [address] Encounter for other general examination [...] management options, if applicable. 09/27/2022 10:39 EDT [facility] Final Diagnosis A. 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 See comment. 09/27/2022 10:39 [facility] Diagnosis Comment Focal squamous intraepithelial neoplasia is noted, however the focus is small and poorly oriented. The focus is absent on IHC stains, therefore high-grade dysplasia cannot be entirely excluded. Immunoperoxidase stains were performed on this case to further characterize the lesion. ANTIBODY(CLONE)(BL OCK):RESULT P16 (E6H4TM, [place]) (A1): Atypical squamous epithelium absent on IHC; [...] performance characteristics have been determined by [facility] and/or by the referring laboratory. The positive [...] high complexity clinical laboratory testing. 09/27/2022 10:39 [facility] Attestation There was significant resident/fellow involvement in the diagnostic evaluation of this case. By the signature below, the attending physician certifies that they have personally conducted a gross and/or microscopic examination of the described specimens and rendered or confirmed the above diagnosis. 09/27/2022 10:39 [facility] at 1039 Clinical History LSIL 09/27/2022 10:39 [facility] Gross Description A. Received in formalin, on a Histologic SFT-100 device, labelled with proper patient identification (initials C, S) and cervical Bx is a 0.2 x 0.1 x 0.1 cm aggregate of das-white soft tissue. The specimen is entirely submitted in A1. LETICIA FREEMAN(ASCP) 09/23/2022 10:14 09/27/2022 10:39 EDT [facility] Resident/Robby w: Patti Pike MD 09/27/2022 10:39 EDT [facility] Performing Lab [facility] 10:39 EDT [facility] Scanned Images 09/27/2022 10:39 EDT [facility] Tissue ENTIRE WALL OF CERVIX / Unknown 09/22/2022 15:30 EDT 09/23/2022 8:10 EDT us Hiral Paz MD PATHOLOGY ORDERABLES Final R esult [facility] [address] [place] [address] documented in this encounter Visit Diagnoses Diagnosis Encounter for other general examination documented in this encounter Care Teams Windows Vmware Engineer Relationship Specialty Start Date End Date Kerry Green MD [address] [place] [address] PCP - General 06/11/20 documented as of this encounter
--- OUTSIDE RECORDS SUMMARY | 2024-06-28 12:57 | XMS_ITS | Referral Summary ---
Author Organization [facility] Address [address] [place] [address] Care Team Providers Care Dinkey Motor Operator Name Role Phone Kerry Green MD Primary Care Provider [phone] Encounters Date Type Department Care Team Description 06/28/2024 Lab Requisition [facility] Pathology & Laboratory [address] [address] Outr Resulting Lab, Provider 06/03/2024 Lab Requisition [facility] Pathology & Laboratory [address] [address] Outr Resulting Lab, Provider 04/30/2024 Lab Requisition [facility] Pathology Laboratory [address] [address] Outr Resulting Lab, Provider 04/30/2024 Lab Requisition [facility] Pathology Laboratory [address] [address] Outr Resulting Lab, Provider 04/30/2024 Lab Requisition [facility] Pathology & Laboratory [address] [address] Outr Resulting Lab, Provider 04/30/2024 Lab Requisition [facility] Pathology Laboratory [address] [address] Outr Resulting Lab, Provider from Last 3 [...] Priority Date/Time Associated Diagnosis Comments PROGESTERONE Routine 06/03/2024 7:48 EST THYROPEROXIDASE ANTIBODY Routine 04/30/2024 15:13 EDT SYPHILIS [...] EDT from Last 3 Months Results * PROGESTERONE (06/03/2024 7:48 EST) Progesterone 0.3 See Table ng/mL 06/03/2024 17:39 EST [facility] Comment: Female Reference Ranges: [...] a pathologist. Blood VENOUS BLOOD / Unknown 06/03/2024 7:48 EST 06/03/2024 16:34 EST us Provider Outr Resulting Lab CHEMISTRY & BLOOD GA S ORDERABLES Final Result Performing Organization Address [facility]/ZIP Co de Phone Number [facility] [address] [place] [address] * THYROPEROXIDASE ANTIBODY (04/30/2024 15:13 EDT) Pathologist [facility] Thyroperoxidase Ab 36 <=60 U/mL 2023 10:57 EDT [facility] Blood VENOUS BLOOD / Unknown 04/30/2024 15:13 EDT 04/30/2024 22:10 EDT us Provider Outr Resulting Lab CHEMISTRY & BLOOD GA S ORDERABLES Final Result Performing Organization Address [facility]/ZIP Co de Phone Number [facility] [address] [place] [address] * SYPHILIS SEROLOGY (04/30/2024 15:13 EDT) Pathologist [facility] Syphilis Serology Negative Negative 05/01/2024 12:48 EDT [facility] Blood VENOUS BLOOD / Unknown 04/30/2024 15:13 EDT 04/30/2024 22:10 EDT us Provider Outr Resulting Lab IMMUNOLOGY AND SEROL OGY ORDERABLES Final Result [facility] [address] [place] [address] * CHLAMYDIA/N. GONORRHOEAE AMPLIFIED NUCLEIC ACID (04/30/2024 15:13 EDT) Neisseria gonorrhoeae Result Negative Negative 05/01/2024 12:03 EDT [facility] Chlamydia trachomatis Result Negative Negative 05/01/2024 12:03 EDT [facility] Urine URINE / Unknown 04/30/2024 1 5:13 EDT 04/30/2024 22:27 EDT Narrative [facility] - 05/01/2024 12:03 EDT A first catch urine specimen is acceptable for detection of Gonorrhea and Chlamydia, but might detect up to 10% fewer infections when compared with vaginal swab samples. us Provider Outr Resulting Lab MICROBIOLOGY - GENER AL ORDERABLES Final Result Performing Organization Address [facility]/ZIP Co de Phone Number [facility] [address] [place], [place] [address] * HEPATITIS C AB W REFLEX TO HCV RNA BY PCR (04/30/2024 15:13 EDT) Hep C Antibody Negative Negative 04/30/2024 23:48 EDT [facility] Blood VENOUS BLOOD / Unknown 04/30/2024 15:13 EDT 04/30/2024 22:10 EDT us Provider Outr Resulting Lab CHEMISTRY & BLOOD GA S ORDERABLES Final Result Performing Organization Address City/[facility]/ZIP Co de Phone Number [facility] [address] [place] [address] * MEASLES IGG AB (04/30/2024 15:13 EDT) Measles IgG Ab Positive See Note 05/01/2024 12:38 EDT [facility] Comment:Presence of detectab le measles virus IgG antibodies. Blood VENOUS BLOOD / Unknown 04/30/2024 15:13 EDT 04/30/2024 22:10 EDT us Provider Outr Resulting Lab IMMUNOLOGY AND SEROL OGY ORDERABLES Final Result [facility] [address] [place] [address] * HEPATITIS B CORE ANTIBODY (TOTAL) (04/30/2024 15:13 EDT) Hepatitis B Core Ab, Total Negative Negative 05/01/2024 10:41 EDT [facility] Blood VENOUS BLOOD / Unknown 04/30/2024 15:13 EDT 04/30/2024 22:10 EDT us Provider Outr Resulting Lab CHEMISTRY & BLOOD GA S ORDERABLES Final Result [facility] [address] [place], [place] [id number] * HEPATITIS B SURFACE ANTIGEN (04/30/2024 15:13 EDT) Hep B Surface Ag Negative Negative 05/01/2024 10:19 EDT [facility] Blood VENOUS BLOOD / Unknown 04/30/2024 15:13 EDT 04/30/2024 22:10 EDT us Provider Outr Resulting Lab CHEMISTRY & BLOOD GA S ORDERABLES Final Result [facility] [address] [place], [place] [address] * VARICELLA IGG ANTIBODY (04/30/2024 15:13 EDT) Varicella IgG Ab Positive See Note 05/01/2024 12:43 EDT [facility] Comment:Presence of detectab le Varicella Zoster virus IgG antibodies. Blood VENOUS BLOOD / Unknown 04/30/2024 15:13 EDT 04/30/2024 22:10 EDT us Provider Outr Resulting Lab IMMUNOLOGY AND SEROL OGY ORDERABLES Final Result Performing Organization Address [facility] Co de Phone Number [facility] [address] [place], [place] [address] * HIV 1/2 ANTIGEN AND ANTIBODY, 4TH GENERATION (04/30/2024 15:13 EDT) HIV 1 and 2 Antibody/p24 Antigen, 4th Generation Negative Negative 04/30/2024 23:52 EDT [facility] Comment:If acute HIV-1 infec tion is suspected in a high risk patient, submit plasma specimen for HIV-1 RNA quantitation test. Blood VENOUS BLOOD / Unknown 04/30/2024 15:13 EDT 04/30/2024 22:10 EDT Narrative [facility] - 04/30/2024 23:52 EDT Fourth Generation assay performed on the Siemens Centaur XPT. us Provider Outr Resulting Lab IMMUNOLOGY AND SEROL OGY ORDERABLES Final Result [facility] [address] [place], [place] [address] from Last 3 Months Insurance [employer] Care Teams Dinkey Motor Operator Relationship Specialty Start Date End Date Kerry Green MD [address] [place] [address] PCP - General 06/11/20
--- OUTSIDE RECORDS SUMMARY | 2024-06-28 12:57 | XMS_ITS | Encounter Summary ---
Author Organization [facility] Address [address] [place] [address] Care Team Providers Care Process Control Engineer Name Role Phone Kerry Green MD Primary Care Provider [phone] Encounter Details Date Type Department Care Team (Late st Contact Info) Description 04/30/2024 Lab Requisition [facility] Pathology & Laboratory Medicine - [address] [address] Outr Resulting Lab, Provider Social History Tobacco [...] gonorrhoeae Result Negative Negative 05/01/2024 12:03 EDT [facility] Chlamydia trachomatis Result Negative Negative 05/01/2024 12:03 EDT [facility] Urine URINE / Unknown 04/30/2024 1 5:13 EDT 04/30/2024 22:27 EDT Narrative [facility] - 05/01/2024 12:03 EDT A first catch urine specimen is acceptable for detection of Gonorrhea and Chlamydia, but might detect up to 10% fewer infections when compared with vaginal swab samples. us Provider Outr Resulting Lab MICROBIOLOGY - GENER AL ORDERABLES Final Result [facility] [address] [place], [place] [address] documented in this encounter Visit Diagnoses Not on filedocumented in this encounter Care Teams Process Control Engineer Relationship Specialty Start Date End Date Kerry Green MD [address] [place] [id number] PCP - General 06/11/20 documented as of this encounter
--- OUTSIDE RECORDS SUMMARY | 2024-06-28 12:57 | XMS_ITS | Encounter Summary ---
Author Organization [facility] Address [address] [place] [address] Care Team Providers Care Multi Punch Operator Name Role Phone Unknown, Provider Primary Care Provider Unava ilable Encounter Details Date Type Department Care Team (Late st Contact Info) Description 01/03/2019 Results Only [facility] [phone] Dillon Serrano, [address] [address] Social History Tobacco Use Types Packs/Day Years [...] ? SMILEY JOHN ? Accession #: ? [id number] : ? 1995 (Age: 23) ??F ?Collect [...] Report Date: ??01/09/2019 12:37 End of Report [facility] 01/03/2019 01/04/2019 us Dillon Serrano [facility] PATHOLOGY ORDERABLES Fin al Result [facility] [address] [place] [address] documented in this encounter Visit Diagnoses Not on filedocumented in this encounter Care Teams Multi Punch Operator Relationship Specialty Start Date End Date Unknown, Provider, PCP - General 06/26/15 06/10/20 documented as of this encounter
--- OUTSIDE RECORDS SUMMARY | 2024-06-28 12:57 | XMS_ITS | Encounter Summary ---
Author Organization [facility] Address [address] [place] [address] Care Team Providers Care Clinical Sales Consultant Name Role Phone Kerry Green MD Primary Care Provider [phone] Encounter Details Date Type Department Care Team (Late st Contact Info) Description 06/28/2024 Lab Requisition [facility] Pathology & Laboratory Medicine - [address] [address] Outr Resulting Lab, Provider Social History Tobacco [...] Type Priority Associated Diagnoses Orde r Schedule PROGESTERONE Lab Routine Ordered: documented as of this encounter Visit Diagnoses Not on filedocumented in this encounter Care Teams Clinical Sales Consultant Relationship Specialty Start Date End Date Kerry Green MD [address] [place] [address] PCP - General 06/11/20 documented as of this encounter
--- OUTSIDE RECORDS SUMMARY | 2024-06-28 12:57 | XMS_ITS | Encounter Summary ---
Author Organization [facility] Address [address] [place] [address] Care Team Providers Care Sales Professional Bilingual Name Role Phone Kerry Green MD Primary Care Provider [phone] Encounter Details Date Type Department Care Team (Late st Contact Info) Description 04/30/2024 Lab Requisition [facility] Pathology & Laboratory Medicine - [address] [id number] Outr Resulting Lab, Provider Social History Tobacco [...] Negative Negative 04/30/2024 23:52 EDT [facility] Comment:If acute HIV-1 infec tion is suspected in a high risk patient, submit plasma specimen for HIV-1 RNA quantitation test. Blood VENOUS BLOOD / Unknown 04/30/2024 15:13 EDT 04/30/2024 22:10 EDT Narrative [facility] - 04/30/2024 23:52 EDT Fourth Generation assay performed on the Siemens Centaur XPT. us Provider Outr Resulting Lab IMMUNOLOGY AND SEROL OGY ORDERABLES Final Result [facility] [address] [place], [place] [address] documented in this encounter Visit Diagnoses Not on filedocumented in this encounter Care Teams Sales Professional Bilingual Relationship Specialty Start Date End Date Kerry Green MD [address] [place] [address] PCP - General 06/11/20 documented as of this encounter
--- OUTSIDE RECORDS SUMMARY | 2024-06-28 12:57 | XMS_ITS | Encounter Summary ---
Author Organization [facility] Address [address] [place] [address] Care Team Providers Care Sleeve Maker Name Role Phone Kerry Green MD Primary Care Provider [phone] Encounter Details Date Type Department Care Team (Late st Contact Info) Description 07/16/2020 Lab Requisition [facility] Pathology & Laboratory Medicine - [address] [address] Elissa Cesar MD [address] [place] [address],[address] [id number] Encounter for other general examination Social History [...] SERVICES Diagnosis Comment The prior Pap test ([id number]) has been reviewed and we agree with the diagnosis of low grade squamous intraepithelial lesion (LSIL). The atypical cells present on the Pap test are not present on the cervical biopsy or endocervical curettage. Deeper sections have been evaluated. 07/22/2020 16:34 [facility] Attestation There was significant resident/fellow involvement in the diagnostic evaluation of this case. By the signature below, the attending physician certifies that they have personally conducted a gross and/or microscopic examination of the described specimens and rendered or confirmed the above diagnosis. 07/22/2020 16:34 [facility] at 1634 Clinical History LSIL +HPV 07/22/2020 16:34 [facility] Gross Description A. Received [...] B1. LETICIA FREEMAN(ASCP) 07/16/2020 16:34 07/22/2020 16:34 [facility] Resident/Robby w: Huber Redman MD 07/22/2020 16:34 [facility] Performing Lab [facility] 16:34 [facility] Scanned Images 07/22/2020 16:34 [facility] Tissue ENTIRE WALL OF CERVIX / Unknown 07/16/2020 10:10 EST 07/16/2020 15:40 EST Tissue specimen (specimen) CERVIX UTERI STRUCTURE / Unknown 07/16/2020 10:10 EST 07/16/2020 15:40 EST us Elissa Cesar MD PATHOLOGY ORDERABLES Final Res ult [facility] [address] [place] [address] documented in this encounter Visit Diagnoses Diagnosis Encounter for other general examination documented in this encounter Care Teams Sleeve Maker Relationship Specialty Start Date End Date Kerry Green MD [address] [place] [address] PCP - General 06/11/20 documented as of this encounter
--- OUTSIDE RECORDS SUMMARY | 2024-06-28 12:57 | XMS_ITS | Encounter Summary ---
Author Organization [facility] Address [address] [place] [address] Care Team Providers Care Commercial Sales Specialist Name Role Phone Kerry Green MD Primary Care Provider [phone] Encounter Details Date Type Department Care Team (Late st Contact Info) Description 05/28/2021 Lab Requisition [facility] Pathology & Laboratory Medicine - [address] [address] Outr Resulting Lab, Provider Social History Tobacco [...] MICROBIOLOGY - GENER AL ORDERABLES Final Result [facility] [address] [place] [address] * COVID-19 TESTING (05/28/2021 9:05 EST) COVID-19 rt-PCR Result Negative Negative 05/28/2021 23:38 EST [facility] Comment: This test has [...] history, and epidemiological information. Performed on the [employer] Fusion instrument Performing Lab [facility] 05/28/2021 23:38 EST [facility] Swab 05/28/2021 9:05 EST 05/28/2021 20:11 EST us Provider Outr Resulting Lab MICROBIOLOGY - GENER AL ORDERABLES Final Result [facility] [address] [place] [address] documented in this encounter Visit Diagnoses Not on filedocumented in this encounter Care Teams Commercial Sales Specialist Relationship Specialty Start Date End Date Kerry Green MD [address] [place] [address] PCP - General 06/11/20 documented as of this encounter
--- OUTSIDE RECORDS SUMMARY | 2024-06-28 12:57 | XMS_ITS | Encounter Summary ---
Author Organization [facility] Address [address] [place] [address] Care Team Providers Care Format Proofreader Name Role Phone Kerry Green MD Primary Care Provider Encounter Details Date Type Department Care Team (Late st Contact Info) Description 04/30/2024 Lab Requisition [facility] Pathology & Laboratory Medicine - [address] [phone] Outr Resulting Lab, Provider Social History Tobacco [...] Ab 36 <=60 U/mL 2023 10:57 EDT [facility] Blood VENOUS BLOOD / Unknown 04/30/2024 15:13 EDT 04/30/2024 22:10 EDT us Provider Outr Resulting Lab CHEMISTRY & BLOOD GA S ORDERABLES Final Result Performing Organization Address [facility]/ZIP Co de Phone Number [facility] [address] [place] [address] * SYPHILIS SEROLOGY (04/30/2024 15:13 EDT) Syphilis Serology Negative Negative 05/01/2024 12:48 EDT [facility] Blood VENOUS BLOOD / Unknown 04/30/2024 15:13 EDT 04/30/2024 22:10 EDT us Provider Outr Resulting Lab IMMUNOLOGY AND SEROL OGY ORDERABLES Final Result Performing Organization Address [facility] Co de Phone Number [facility] [address] [place] [address] * MEASLES IGG AB (04/30/2024 15:13 EDT) Measles IgG Ab Positive See Note 05/01/2024 12:38 EDT [facility] Comment:Presence of detectab le measles virus IgG antibodies. Blood VENOUS BLOOD / Unknown 04/30/2024 15:13 EDT 04/30/2024 22:10 EDT us Provider Outr Resulting Lab IMMUNOLOGY AND SEROL OGY ORDERABLES Final Result Performing Organization Address [facility]/ZIP Co de Phone Number [facility] [address] [place] [address] * VARICELLA IGG ANTIBODY (04/30/2024 15:13 EDT) Varicella IgG Ab Positive See Note 05/01/2024 12:43 EDT [facility] Comment:Presence of detectab le Varicella Zoster virus IgG antibodies. Blood VENOUS BLOOD / Unknown 04/30/2024 15:13 EDT 04/30/2024 22:10 EDT us Provider Outr Resulting Lab IMMUNOLOGY AND SEROL OGY ORDERABLES Final Result [facility] [address] [place] [address] documented in this encounter Visit Diagnoses Not on filedocumented in this encounter Care Teams Format Proofreader Relationship Specialty Start Date End Date Kerry Green MD [address] [place] [address] PCP - General 06/11/20 documented as of this encounter
--- OUTSIDE RECORDS SUMMARY | 2024-06-28 12:57 | XMS_ITS | Encounter Summary ---
Author Organization [facility] Address [address] [place] [address] Care Team Providers Care High Pressure Boiler Operator Name Role Phone Kerry Green MD Primary Care Provider [phone] Encounter Details Date Type Department Care Team (Late st Contact Info) Description 08/23/2021 Lab Requisition [facility] Pathology & Laboratory Medicine - [address] [address] Lesley Mendoza, [address] [phone] Encounter for other general examination Social History [...] System with Manual Evaluation 08/31/2021 15:12 EST [facility] Specimen Adequacy Satisfactory for Evaluation - transformation zone component absent 08/31/2021 15:12 EST [facility] General Categorization Negative for intraepithelial lesion or malignancy 08/31/2021 15:12 EST [facility] Attestation . 08/31/2021 15:12 EST [facility] at 1512 Clinical History See below 08/31/19 15:12 EST [facility] Performing Lab [facility] 08/31/2021 15:12 EST [facility] Scanned Images 08/31/2021 15:12 EST [facility] Papanicolaou smear specimen (specimen) CERVIX UTERI STRUCTURE / Unknown 08/20/2021 11:30 EST 08/23/2021 10:52 EST Lesley Mendoza BONDING MACHINE OPERATOR PATHOLOGY ORDERABLES Final R esult [facility] [address] [place] [address] documented in this encounter Visit Diagnoses Diagnosis Encounter for other general examination documented in this encounter Care Teams High Pressure Boiler Operator Relationship Specialty Start Date End Date Kerry Green MD [address] [place] [address] PCP - General 06/11/20 documented as of this encounter
--- OUTSIDE RECORDS SUMMARY | 2024-06-28 12:57 | XMS_ITS | Encounter Summary ---
Author Organization [facility] Address [address] [place] [address] Care Team Providers Care Chain Offbearer Name Role Phone Kerry Green MD Primary Care Provider [phone] Encounter Details Date Type Department Care Team (Late st Contact Info) Description 06/09/2021 Lab Requisition [facility] Pathology & Laboratory Medicine - [address] [address] Outr Resulting Lab, Provider Social History Tobacco [...] MICROBIOLOGY - GENER AL ORDERABLES Final Result [facility] [address] [place] [address] * COVID-19 TESTING (06/09/2021 10:15 EST) COVID-19 rt-PCR Result Negative Negative 06/10/2021 2:20 EST [facility] Comment: This test has not [...] history, and epidemiological information. Performed on the [employer]her Fusion instrument Performing Lab [place] [facility] 06/10/2021 2:20 EST [facility] Swab 06/09/2021 10:1 5 EST 06/09/2021 22:40 EST us Provider Outr Resulting Lab MICROBIOLOGY - GENER AL ORDERABLES Final Result [facility] [address] [place] [address] documented in this encounter Visit Diagnoses Not on filedocumented in this encounter Care Teams Chain Offbearer Relationship Specialty Start Date End Date Kerry Green MD [address] [place] [address] PCP - General 06/11/20 documented as of this encounter
--- OUTSIDE RECORDS SUMMARY | 2024-06-28 12:57 | XMS_ITS | Encounter Summary ---
Author Organization [facility] Address [address] [place] [address] Care Team Providers Care Family Law Attorney Name Role Phone Kerry Green MD Primary Care Provider [phone] Encounter Details Date Type Department Care Team (Late st Contact Info) Description 04/30/2024 Lab Requisition [facility] Pathology & Laboratory Medicine - [address] [phone] Outr Resulting Lab, Provider Social History Tobacco [...] Ab, Total Negative Negative 05/01/2024 10:41 EDT [facility] Blood VENOUS BLOOD / Unknown 04/30/2024 15:13 EDT 04/30/2024 22:10 EDT us Provider Outr Resulting Lab CHEMISTRY & BLOOD GA S ORDERABLES Final Result Performing Organization Address [facility]/ZIP Co de Phone Number [facility] [address] [place], [place] [address] * HEPATITIS B SURFACE ANTIGEN (04/30/2024 15:13 EDT) Hep B Surface Ag Negative Negative 05/01/2024 10:19 EDT [facility] Blood VENOUS BLOOD / Unknown 04/30/2024 15:13 EDT 04/30/2024 22:10 EDT us Provider Outr Resulting Lab CHEMISTRY & BLOOD GA S ORDERABLES Final Result Performing Organization Address [facility] de Phone Number [facility] [address] [place] [address] * HEPATITIS C AB W REFLEX TO HCV RNA BY PCR (04/30/2024 15:13 EDT) Hep C Antibody Negative Negative 04/30/2024 23:48 EDT [facility] Blood VENOUS BLOOD / Unknown 04/30/2024 15:13 EDT 04/30/2024 22:10 EDT us Provider Outr Resulting Lab CHEMISTRY & BLOOD GA S ORDERABLES Final Result Performing Organization Address [facility] Co de Phone Number [facility] [address] [place], [place] [phone] documented in this encounter Visit Diagnoses Not on filedocumented in this encounter Care Teams Family Law Attorney Relationship Specialty Start Date End Date Kerry Green MD [address] [place] [address] PCP - General 06/11/20 documented as of this encounter
--- OUTSIDE RECORDS SUMMARY | 2024-06-28 12:57 | XMS_ITS | Encounter Summary ---
Author Organization [facility] Address [address] [place] [address] Care Team Providers Care Electron Gun Assembler Name Role Phone Kerry Green MD Primary Care Provider [phone] Encounter Details Date Type Department Care Team (Late st Contact Info) Description 06/03/2024 Lab Requisition [facility] Pathology & Laboratory Medicine - [address] [address] Outr Resulting Lab, Provider Social History Tobacco [...] Diagnosis Comments PROGESTERONE Routine 06/03/2024 7:48 EST documented in this encounter Results * PROGESTERONE (06/03/2024 7:48 EST) Progesterone 0.3 See Table ng/mL 06/03/2024 17:39 EST [facility] Comment: Female Reference Ranges: PHYSIOLOGICAL [...] S ORDERABLES Final Result Performing Organization Address [facility]/State/[facility] Co de Phone Number [facility] [address] [place] [address] documented in this encounter Visit Diagnoses Not on filedocumented in this encounter Care Teams Electron Gun Assembler Relationship Specialty Start Date End Date Kerry Green MD [address] [place] [address] PCP - General 06/11/20 documented as of this encounter
--- OUTSIDE RECORDS SUMMARY | 2024-06-28 12:57 | XMS_ITS | Encounter Summary ---
Author Organization [facility] Address [address] [place] [address] Care Team Providers Care Mlt Name Role Phone Unknown, Provider Primary Care Provider Unava ilable Encounter Details Date Type Department Care Team (Late st Contact Info) Description 06/26/2015 Results Only [facility] [phone] Dillon Serrano, [address] [phone] Social History Tobacco Use Types Packs/Day Years [...] ? SMILEY JOHN ? Accession #: ? [id number] : ? 1995 (Age: 19) ??F ?Collect [...] Report Date: ??07/01/2015 14:22 End of Report [facility] 06/26/2015 06/29/2015 us Dillon Serrano [facility] PATHOLOGY ORDERABLES Fin al Result [facility] [address] [place] [address] documented in this encounter Visit Diagnoses Not on filedocumented in this encounter Care Teams Mlt Relationship Specialty Start Date End Date Unknown, Provider, PCP - General 06/26/15 06/10/20 documented as of this encounter
--- OUTSIDE RECORDS SUMMARY | 2024-06-28 12:57 | XMS_ITS | Encounter Summary ---
Author Organization [facility] Address [address] [place] [address] Care Team Providers Care Automatic Serging Machine Operator Name Role Phone Kerry Green MD Primary Care Provider [phone] Encounter Details Date Type Department Care Team (Late st Contact Info) Description 06/12/2020 Lab Requisition [facility] Pathology & Laboratory Medicine - [address] [address] [address] [place] [phone] Encounter for other general examination Social History [...] PCR Positive( A) Negative 06/25/2020 14:52 EST [facility] Comment:E6 OR E7 mRNA from o ne or more types of HPV types 16,18,31,33,35,39,45,51,52,56,58,59,66, and 68 is detected by sterile products processor mediated amplification. High and intermediate risk HPV types are associated with most squamous intraepithelial lesions and cervical cancers. Papanicolaou smear specimen (specimen) CERVIX UTERI STRUCTURE / Unknown 06/11/2020 14:00 EST 06/18/2020 11:21 EST Lesley Mendoza DIAL POLISHER MICROBIOLOGY - GENERAL ORDER HAM Final Result [facility] [address] [place] [address] * PAP TEST (06/11/2020 14:00 EST) Specimens A. Cervix and/or Endocervix , ThinPrep Imaging System with Manual Evaluation 06/25/2020 14:52 [facility] Specimen Adequacy Satisfactory for Evaluation - transformation zone component present 06/25/2020 14:52 [facility] General Categorization Epithelial Cell Abnormality 06/25/2020 14:52 [facility] Descriptive Diagnosis 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 06/25/2020 14:52 [facility] Educational Comments [facility] recommends following ASCCP's 2012 Updated Consensus Guidelines for the Management of Abnormal Cervical Cancer Screening Tests and Cancer Precursors (JLGTD, 2013; 17(5):S1-S27). Consensus guidelines are available online at www.asccp.org. 06/25/2020 14:52 [facility] Attestation By the signature below, the attending physician certifies that they have personally conducted a gross and/or microscopic examination of the described specimens and rendered or confirmed the above diagnosis. 06/25/2020 14:52 [facility] at 1452 Clinical History See below 06/25/20 14:52 [facility] HPV The result for the Human Papillomavirus (HPV) Detection-High Risk Types is Positive . E6 OR E7 mRNA from one or more types of HPV types 16,18,31,33,35,39 ,45,51,52,56,58,5 9,66, and 68 is detected by sterile products processor mediated amplification. High and intermediate risk HPV types are associated with most squamous intraepithelial lesions and cervical cancers. Testing was performed on specimen [id number] and was resulted on 06/25/2020 1449 EST by LEXY, LAB INSTRUMENT RESULTS IN 06/25/2020 14:52 EST [facility] Performing Lab [facility] 06/25/2020 14:52 EST [facility] Scanned Images 06/25/2020 14:52 EST [facility] Papanicolaou smear specimen (specimen) CERVIX UTERI STRUCTURE / Unknown 06/11/2020 14:00 EST 06/12/2020 9:55 EST us Lesley Mendoza DIAL POLISHER PATHOLOGY ORDERABLES Final R esult [facility] [address] [place] [address] documented in this encounter Visit Diagnoses Diagnosis Encounter for other general examination documented in this encounter Care Teams Automatic Serging Machine Operator Relationship Specialty Start Date End Date Kerry Green MD [address] [place] [address] PCP - General 06/11/20 documented as of this encounter
--- OUTSIDE RECORDS SUMMARY | 2024-06-28 12:57 | XMS_ITS | Encounter Summary ---
Author Organization [facility] Address [address] [place] [address] Care Team Providers Care Reproduction Order Processor Name Role Phone Kerry Green MD Primary Care Provider [phone] Encounter Details Date Type Department Care Team (Late st Contact Info) Description 09/27/2023 Lab Requisition [facility] Pathology & Laboratory Medicine - [address] [address] Outr Resulting Lab, Provider Social History Tobacco [...] 8.8 See Note mIU/mL 09/27/2023 18:47 EDT [facility] Blood VENOUS BLOOD / Unknown 09/26/2023 15:44 EDT 09/27/2023 16:58 EDT Narrative [facility] - 09/27/2023 18:47 EDT NOTE: [...] & BLOOD GA S ORDERABLES Final Result [facility] [address] [place] [address] * PROGESTERONE (09/26/2023 15:44 EDT) Progesterone <0.2 See Table ng/mL 09/27/2023 18:26 EDT [facility] Comment: Female Reference Ranges: PHYSIOLOGICAL [...] S ORDERABLES Final Result Performing Organization Address City/State/[facility] Co de Phone Number [facility] [address] [place] [address] documented in this encounter Visit Diagnoses Not on filedocumented in this encounter Care Teams Reproduction Order Processor Relationship Specialty Start Date End Date Kerry Green MD [address] [place] [address] PCP - General 06/11/20 documented as of this encounter
--- OUTSIDE RECORDS SUMMARY | 2024-06-28 12:57 | XMS_ITS | Clinical Summary ---
Author Organization [facility] Address [address] [place] [address] Care Team Providers Care Conference Specialist Name Role Phone Kerry Green MD Primary Care Provider [phone] Encounters Date Type Department Care Team Description 06/28/2024 Lab Requisition [facility] Pathology & Laboratory [address] [address] Outr Resulting Lab, Provider 06/03/2024 Lab Requisition [facility] Pathology & Laboratory [address] [address] Outr Resulting Lab, Provider 04/30/2024 Lab Requisition [facility] Pathology Laboratory [address] [address] Outr Resulting Lab, Provider 04/30/2024 Lab Requisition [facility] Pathology Laboratory [address] [address] Outr Resulting Lab, Provider 04/30/2024 Lab Requisition [facility] Pathology & Laboratory [address] [address] Outr Resulting Lab, Provider 04/30/2024 Lab Requisition [facility] Pathology Laboratory [address] [address] Outr Resulting Lab, Provider from Last 3 [...] - 19+ 3-dose series) 10/23 COVID-19 Vaccine ( season) 2024 Hepatitis C Screen Completed 04/30/2024 Procedures Procedure [...] 0.3 See Table ng/mL 06/03/2024 17:39 EST [facility] Comment: Female Reference Ranges: [...] S ORDERABLES Final Result Performing Organization Address [facility] Co de Phone Number [facility] [address] [place], [place] [address] * THYROPEROXIDASE ANTIBODY (04/30/2024 15:13 EDT) Thyroperoxidase Ab 36 <=60 U/mL 2023 10:57 EDT [facility] Blood VENOUS BLOOD / Unknown 04/30/2024 15:13 EDT 04/30/2024 22:10 EDT us Provider Outr Resulting Lab CHEMISTRY & BLOOD GA S ORDERABLES Final Result Performing Organization Address [facility] Co de Phone Number [facility] [address] [place] [address] * SYPHILIS SEROLOGY (04/30/2024 15:13 EDT) Syphilis Serology Negative Negative 05/01/2024 12:48 EDT [facility] Blood VENOUS BLOOD / Unknown 04/30/2024 15:13 EDT 04/30/2024 22:10 EDT us Provider Outr Resulting Lab IMMUNOLOGY AND SEROL OGY ORDERABLES Final Result Performing Organization Address [facility]/ZIP Co de Phone Number [facility] [address] [place] [address] * CHLAMYDIA/N. GONORRHOEAE AMPLIFIED NUCLEIC ACID (04/30/2024 15:13 EDT) Pathologist [facility] Neisseria gonorrhoeae Result Negative Negative 05/01/2024 12:03 EDT [facility] Chlamydia trachomatis Result Negative Negative 05/01/2024 12:03 EDT [facility] Urine URINE / Unknown 04/30/2024 1 5:13 EDT 04/30/2024 22:27 EDT Narrative [facility] - 05/01/2024 12:03 EDT A first catch urine specimen is acceptable for detection of Gonorrhea and Chlamydia, but might detect up to 10% fewer infections when compared with vaginal swab samples. us Provider Outr Resulting Lab MICROBIOLOGY - GENER AL ORDERABLES Final Result [facility] [address] [place] [address] * HEPATITIS C AB W REFLEX TO HCV RNA BY PCR (04/30/2024 15:13 EDT) Hep C Antibody Negative Negative 04/30/2024 23:48 EDT [facility] Blood VENOUS BLOOD / Unknown 04/30/2024 15:13 EDT 04/30/2024 22:10 EDT us Provider Outr Resulting Lab CHEMISTRY & BLOOD GA S ORDERABLES Final Result Performing Organization Address [facility]/ZIP Co de Phone Number [facility] [address] [place] [address] * MEASLES IGG AB (04/30/2024 15:13 EDT) Measles IgG Ab Positive See Note 05/01/2024 12:38 EDT [facility] Comment:Presence of detectab le measles virus IgG antibodies. Blood VENOUS BLOOD / Unknown 04/30/2024 15:13 EDT 04/30/2024 22:10 EDT us Provider Outr Resulting Lab IMMUNOLOGY AND SEROL OGY ORDERABLES Final Result Performing Organization Address [facility] de Phone Number [facility] [address] [place] [address] * HEPATITIS B CORE ANTIBODY (TOTAL) (04/30/2024 15:13 EDT) Hepatitis B Core Ab, Total Negative Negative 05/01/2024 10:41 EDT [facility] Blood VENOUS BLOOD / Unknown 04/30/2024 15:13 EDT 04/30/2024 22:10 EDT us Provider Outr Resulting Lab CHEMISTRY & BLOOD GA S ORDERABLES Final Result Performing Organization Address [facility] Co de Phone Number [facility] [address] [place], [place] [id number] * HEPATITIS B SURFACE ANTIGEN (04/30/2024 15:13 EDT) Hep B Surface Ag Negative Negative 05/01/2024 10:19 EDT [facility] Blood VENOUS BLOOD / Unknown 04/30/2024 15:13 EDT 04/30/2024 22:10 EDT us Provider Outr Resulting Lab CHEMISTRY & BLOOD GA S ORDERABLES Final Result [facility] [address] [place] [address] * VARICELLA IGG ANTIBODY (04/30/2024 15:13 EDT) Varicella IgG Ab Positive See Note 05/01/2024 12:43 EDT [facility] Comment:Presence of detectab le Varicella Zoster virus IgG antibodies. Blood VENOUS BLOOD / Unknown 04/30/2024 15:13 EDT 04/30/2024 22:10 EDT us Provider Outr Resulting Lab IMMUNOLOGY AND SEROL OGY ORDERABLES Final Result Performing Organization Address [facility] Co de Phone Number [facility] [address] [place] [address] * HIV 1/2 ANTIGEN AND ANTIBODY, 4TH GENERATION (04/30/2024 15:13 EDT) HIV 1 and 2 Antibody/p24 Antigen, 4th Generation Negative Negative 04/30/2024 23:52 EDT [facility] Comment:If acute HIV-1 infec tion is suspected in a high risk patient, submit plasma specimen for HIV-1 RNA quantitation test. Blood VENOUS BLOOD / Unknown 04/30/2024 15:13 EDT 04/30/2024 22:10 EDT Narrative [facility] - 04/30/2024 23:52 EDT Fourth Generation assay performed on the Siemens Centaur XPT. us Provider Outr Resulting Lab IMMUNOLOGY AND SEROL OGY ORDERABLES Final Result Performing Organization Address City/[facility]/ZIP Co de Phone Number [facility] [address] [place] [address] from Last 3 Months Insurance [employer] Care Teams Conference Specialist Relationship Specialty Start Date End Date Kerry Green MD [address] [place] [address] PCP - General 06/11/20
--- OUTSIDE RECORDS SUMMARY | 2024-06-28 12:57 | XMS_ITS | Encounter Summary ---
Author Organization [facility] Address [address] [place] [address] Care Team Providers Care Unix Systems Administrator Name Role Phone Kerry Green MD Primary Care Provider [phone] Encounter Details Date Type Department Care Team (Late st Contact Info) Description 09/01/2022 Lab Requisition [facility] Pathology & Laboratory Medicine - [address] [address] Shital Villela, ANSWERING SERVICE AGENT [address] [place] [phone] Encounter for other general examination Social History [...] System with Manual Evaluation 09/14/2022 8:20 EST [facility] Specimen Adequacy Satisfactory for Evaluation - transformation zone component present 09/14/2022 8:20 EST [facility] General Categorization Epithelial Cell Abnormality 09/14/2022 8:20 EST [facility] Descriptive Diagnosis 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 09/14/2022 8:20 [facility] Educational Comments [facility] recommends following the ASCCP's management guidelines which may be found at www.asccp.org 09/14/2022 8:20 [facility] Attestation By the signature below, the attending physician certifies that they have personally conducted a gross and/or microscopic examination of the described specimens and rendered or confirmed the above diagnosis. 09/14/2022 8:20 [facility] at 0820 Clinical History See below 09/15/19 8:20 [facility] Performing Lab [facility] 09/14/2022 8:20 [facility] Scanned Images 09/14/2022 8:20 [facility] Papanicolaou smear specimen (specimen) CERVIX UTERI STRUCTURE / Unknown 08/31/2022 8:30 EST 09/01/2022 9:38 EST us Shital Villela ANSWERING SERVICE AGENT PATHOLOGY ORDERABLES Eri l Result [facility] [address] [place] [address] documented in this encounter Visit Diagnoses Diagnosis Encounter for other general examination documented in this encounter Care Teams Unix Systems Administrator Relationship Specialty Start Date End Date Kerry Green MD [address] [place] [address] PCP - General 06/11/20 documented as of this encounter
[2024-06-28 19:10] LABS: Progesterone 0.3 ng/mL (See Table)
== END 2024-06-28 12:47 | disposition home or self-care (01) ==
LOC: LBO 12:48
PROVIDERS: PCP Nurse Practitioner Family; Visit Provider Nurse Practitioner Family
DX: N97.9 Female infertility, unspecified (principal)
CPT/HCPCS: 36415; 84144; 84702

== ENCOUNTER 2024-07-23 03:45 | Outpatient (CLI) | payer OTHER, SELFPAY ==
[2024-07-23 11:01] LABS: HCG Quant, Pregnancy 2 mIU/mL (1-3)
[2024-07-23 18:33] LABS: Progesterone 0.4 ng/mL (See Table)
== END 2024-07-23 03:46 | disposition home or self-care (01) ==
LOC: LBO 03:46
PROVIDERS: PCP Nurse Practitioner Family; Visit Provider Nurse Practitioner Family
DX: N97.9 Female infertility, unspecified (principal)
CPT/HCPCS: 36415; 84144; 84702

== ENCOUNTER 2024-08-16 01:24 | Outpatient (CLI) | payer OTHER, SELFPAY ==
--- OUTSIDE RECORDS SUMMARY | 2024-08-16 01:30 | XMS_ITS | Encounter Summary ---
Author Organization [facility] Address [address] [place] [address] Care Team Providers Care Mining Detail Draftsperson Name Role Phone Kerry Green MD Primary Care Provider [phone] Encounter Details Date Type Department Care Team (Late st Contact Info) Description 09/27/2023 Lab Requisition [facility] Pathology & Laboratory Medicine - [address] [id number] Outr Resulting Lab, Provider Social History Tobacco [...] Note mIU/mL 09/27/2023 18:47 EDT [facility] Blood VENOUS BLOOD / Unknown 09/26/2023 15:44 EDT 09/27/2023 16:58 EDT Narrative [facility] - 09/27/2023 18:47 EDT NOTE: [...] GA S ORDERABLES Final Result [facility] [address] [place] [address] * PROGESTERONE (09/26/2023 15:44 EDT) Progesterone <0.2 See Table ng/mL 09/27/2023 18:26 EDT [facility] Comment: Female Reference Ranges: PHYSIOLOGICAL [...] S ORDERABLES Final Result Performing Organization Address City/State/[facility] Co de Phone Number [facility] [address] [place] [address] documented in this encounter Visit Diagnoses Not on filedocumented in this encounter Care Teams Mining Detail Draftsperson Relationship Specialty Start Date End Date Kerry Green MD [address] [place] [address] PCP - General 06/11/20 documented as of this encounter
--- OUTSIDE RECORDS SUMMARY | 2024-08-16 01:30 | XMS_ITS | Encounter Summary ---
Author Organization [facility] Address [address] [place] [address] Care Team Providers Care Energy Projects Lead Name Role Phone Kerry Green MD Primary Care Provider [phone] Encounter Details Date Type Department Care Team (Late st Contact Info) Description 04/30/2024 Lab Requisition [facility] Pathology & Laboratory Medicine - [address] [address] Outr Resulting Lab, Provider Social History Tobacco [...] Negative Negative 05/01/2024 12:03 EDT [facility] Chlamydia trachomatis Result Negative Negative 05/01/2024 12:03 EDT [facility] Urine URINE / Unknown 04/30/2024 1 5:13 EDT 04/30/2024 22:27 EDT Narrative [facility] - 05/01/2024 12:03 EDT A first catch urine specimen is acceptable for detection of Gonorrhea and Chlamydia, but might detect up to 10% fewer infections when compared with vaginal swab samples. us Provider Outr Resulting Lab MICROBIOLOGY - GENER AL ORDERABLES Final Result [facility] [address] [place], [place] [address] documented in this encounter Visit Diagnoses Not on filedocumented in this encounter Care Teams Energy Projects Lead Relationship Specialty Start Date End Date Kerry Green MD [address] [place] [address] PCP - General 06/11/20 documented as of this encounter
--- OUTSIDE RECORDS SUMMARY | 2024-08-16 01:30 | XMS_ITS | Encounter Summary ---
Author Organization [facility] Address [address] [place] [address] Care Team Providers Care Rn Lactation Consultant Name Role Phone Kerry Green MD Primary Care Provider [phone] Encounter Details Date Type Department Care Team (Late st Contact Info) Description 06/28/2024 Lab Requisition [facility] Pathology & Laboratory Medicine - [address] [address] Outr Resulting Lab, Provider Social History Tobacco [...] Priority Date/Time Associated Diagnosis Comments PROGESTERONE Routine 06/28/2024 7:13 EST documented in this encounter Results * PROGESTERONE (06/28/2024 7:13 EST) Progesterone 0.3 See Table ng/mL 06/28/2024 19:03 EST [facility] Comment: Female Reference Ranges: PHYSIOLOGICAL [...] a pathologist. Blood VENOUS BLOOD / Unknown 06/28/2024 7:13 EST 06/28/2024 17:47 EST us Provider Outr Resulting Lab CHEMISTRY & BLOOD GA S ORDERABLES Final Result Performing Organization Address [facility]/State/[facility] Co de Phone Number [facility] [address] [place] [address] documented in this encounter Visit Diagnoses Not on filedocumented in this encounter Care Teams Rn Lactation Consultant Relationship Specialty Start Date End Date Kerry Green MD [address] [place] [address] PCP - General 06/11/20 documented as of this encounter
--- OUTSIDE RECORDS SUMMARY | 2024-08-16 01:30 | XMS_ITS | Encounter Summary ---
Author Organization [facility] Address [address] [place] [address] Care Team Providers Care Machine Group Leader Name Role Phone Kerry Green MD Primary Care Provider [phone] Encounter Details Date Type Department Care Team (Late st Contact Info) Description 09/29/2023 Lab Requisition [facility] Pathology & Laboratory Medicine - [address] [address] Shital Villela, FISH BAILER [address] [phone] Encounter for other general examination Social History [...] System with Manual Evaluation 10/03/2023 13:55 EDT [facility] Specimen Adequacy Satisfactory for Evaluation - transformation zone component present 10/03/2023 13:55 EDT [facility] General Categorization Negative for intraepithelial lesion or malignancy 10/03/2023 13:55 EDT [facility] Attestation . 10/03/2023 13:55 EDT [facility] at 1355 Clinical History See below 10/03/19 13:55 EDT [facility] Performing Lab [facility] 10/03/2023 13:55 EDT [facility] Scanned Images 10/03/2023 13:55 EDT [facility] Pap Test CERVIX UTERI STRUCTURE / Unknown 09/26/2023 15:15 EDT 09/29/2023 9:41 EDT us [place] V[place] FISH BAILER PATHOLOGY ORDERABLES Eri l Result [facility] [address] [place] [address] documented in this encounter Visit Diagnoses Diagnosis Encounter for other general examination documented in this encounter Care Teams Machine Group Leader Relationship Specialty Start Date End Date Kerry Green MD [address] [place] [address] PCP - General 06/11/20 documented as of this encounter
--- OUTSIDE RECORDS SUMMARY | 2024-08-16 01:30 | XMS_ITS | Encounter Summary ---
Author Organization [facility] Address [address] [place] [address] Care Team Providers Care Merchant Patroller Name Role Phone Kerry Green MD Primary Care Provider [phone] Encounter Details Date Type Department Care Team (Late st Contact Info) Description 05/28/2021 Lab Requisition [facility] Pathology & Laboratory Medicine - [address] [address] Outr Resulting Lab, Provider Social History Tobacco [...] - GENER AL ORDERABLES Final Result [facility] [address] [place] [address] * COVID-19 TESTING (05/28/2021 9:05 EST) COVID-19 rt-PCR Result Negative Negative 05/28/2021 23:38 EST [facility] Comment: This test has [...] history, and epidemiological information. Performed on the [employer] Fusion instrument Performing Lab [place] [facility] 05/28/2021 23:38 EST [facility] Swab 05/28/2021 9:05 EST 05/28/2021 20:11 EST us Provider Outr Resulting Lab MICROBIOLOGY - GENER AL ORDERABLES Final Result [facility] [address] [place] [address] documented in this encounter Visit Diagnoses Not on filedocumented in this encounter Care Teams Merchant Patroller Relationship Specialty Start Date End Date Kerry Green MD [address] [place] [address] PCP - General 06/11/20 documented as of this encounter
--- OUTSIDE RECORDS SUMMARY | 2024-08-16 01:30 | XMS_ITS | Encounter Summary ---
Author Organization [facility] Address [address] [place] [address] Care Team Providers Care Wheel Aligner Name Role Phone Kerry Green MD Primary Care Provider [phone] Encounter Details Date Type Department Care Team (Late st Contact Info) Description 04/30/2024 Lab Requisition [facility] Pathology & Laboratory Medicine - [address] [address] Outr Resulting Lab, Provider Social History Tobacco [...] Ab, Total Negative Negative 05/01/2024 10:41 EDT [facility] Blood VENOUS BLOOD / Unknown 04/30/2024 15:13 EDT 04/30/2024 22:10 EDT us Provider Outr Resulting Lab CHEMISTRY & BLOOD GA S ORDERABLES Final Result Performing Organization Address [facility]/ZIP Co de Phone Number [facility] [address] [place], [place] [address] * HEPATITIS B SURFACE ANTIGEN (04/30/2024 15:13 EDT) Hep B Surface Ag Negative Negative 05/01/2024 10:19 EDT [facility] Blood VENOUS BLOOD / Unknown 04/30/2024 15:13 EDT 04/30/2024 22:10 EDT us Provider Outr Resulting Lab CHEMISTRY & BLOOD GA S ORDERABLES Final Result Performing Organization Address [facility] de Phone Number [facility] [address] [place] [address] * HEPATITIS C AB W REFLEX TO HCV RNA BY PCR (04/30/2024 15:13 EDT) Hep C Antibody Negative Negative 04/30/2024 23:48 EDT [facility] Blood VENOUS BLOOD / Unknown 04/30/2024 15:13 EDT 04/30/2024 22:10 EDT us Provider Outr Resulting Lab CHEMISTRY & BLOOD GA S ORDERABLES Final Result Performing Organization Address [facility] Co de Phone Number [facility] [address] [place], [place] [id number] documented in this encounter Visit Diagnoses Not on filedocumented in this encounter Care Teams Wheel Aligner Relationship Specialty Start Date End Date Kerry Green MD [address] [place] [address] PCP - General 06/11/20 documented as of this encounter
--- OUTSIDE RECORDS SUMMARY | 2024-08-16 01:30 | XMS_ITS | Clinical Summary ---
Author Organization [facility] Address [address] [place] [address] Care Team Providers Care Tool Designer Name Role Phone Kerry Green MD Primary Care Provider [phone] Encounters Date Type Department Care Team Description 07/23/2024 Lab Requisition [facility] Pathology & Laboratory [address] [address] Outr Resulting Lab, Provider 06/28/2024 Lab Requisition [facility] Pathology & Laboratory [address] [address] Outr Resulting Lab, Provider 06/03/2024 Lab Requisition [facility] Pathology Laboratory [address] [address] Outr Resulting Lab, Provider from Last 3 [...] Priority Date/Time Associated Diagnosis Comments PROGESTERONE Routine 07/23/2024 10:35 EST PROGESTERONE Routine 06/28/2024 7:13 EST PROGESTERONE Routine 06/03/2024 7:48 EST HEPATITIS C AB W REFLEX TO HCV RNA BY PCR Routine 04/30/2024 15:13 EDT from Last 3 Months or Most Recently Relevant to Health Maintenance Results * PROGESTERONE (07/23/2024 10:35 EST) Only the most recent of3 resultswithin the time period is included. Progesterone 0.4 See Table ng/mL 07/23/2024 18:27 EST [facility] Comment: Female Reference [...] a pathologist. Blood VENOUS BLOOD / Unknown 07/23/2024 10:35 EST 07/23/2024 17:29 EST us Provider Outr Resulting Lab CHEMISTRY & BLOOD GA S ORDERABLES Final Result [facility] [address] [place] [address] * HEPATITIS C AB W REFLEX TO HCV RNA BY PCR (04/30/2024 15:13 EDT) Hep C Antibody Negative Negative 04/30/2024 23:48 EDT [facility] Blood VENOUS BLOOD / Unknown 04/30/2024 15:13 EDT 04/30/2024 22:10 EDT Provider Outr Resulting Lab CHEMISTRY & BLOOD GA S ORDERABLES Final Result [facility] [address] [place], [place] [address] from Last 3 Months or Most Recently Relevant to Health Maintenance Insurance [employer] Care Teams Tool Designer Relationship Specialty Start Date End Date Kerry Green MD [address] [place] [address] PCP - General 06/11/20
--- OUTSIDE RECORDS SUMMARY | 2024-08-16 01:30 | XMS_ITS | Encounter Summary ---
Author Organization [facility] Address [address] [place] [address] Care Team Providers Care Axle And Frame Mechanic Name Role Phone Kerry Green MD Primary Care Provider [phone] Encounter Details Date Type Department Care Team (Late st Contact Info) Description 06/09/2021 Lab Requisition [facility] Pathology & Laboratory Medicine - [address] [address] Outr Resulting Lab, Provider Social History Tobacco [...] MICROBIOLOGY - GENER AL ORDERABLES Final Result [facility] [address] [place] [address] * COVID-19 TESTING (06/09/2021 10:15 EST) COVID-19 rt-PCR Result Negative Negative 06/10/2021 2:20 EST [facility] Comment: This test has not [...] history, and epidemiological information. Performed on the [employer] Fusion instrument Performing Lab [place] [facility] 06/10/2021 2:20 EST [facility] Swab 06/09/2021 10:1 5 EST 06/09/2021 22:40 EST us Provider Outr Resulting Lab MICROBIOLOGY - GENER AL ORDERABLES Final Result [facility] [address] [place] [address] documented in this encounter Visit Diagnoses Not on filedocumented in this encounter Care Teams Axle And Frame Mechanic Relationship Specialty Start Date End Date Kerry Green MD [address] [place] [address] PCP - General 06/11/20 documented as of this encounter
--- OUTSIDE RECORDS SUMMARY | 2024-08-16 01:30 | XMS_ITS | Referral Summary ---
Author Organization [facility] Address [address] [place] [address] Care Team Providers Care Maitre D Name Role Phone Kerry Green MD Primary Care Provider [phone] Encounters Date Type Department Care Team Description 07/23/2024 Lab Requisition [facility] Pathology & Laboratory [address] [address] Outr Resulting Lab, Provider 06/28/2024 Lab Requisition [facility] Pathology & Laboratory [address] [address] Outr Resulting Lab, Provider 06/03/2024 Lab Requisition [facility] Pathology Laboratory [address] [address] Outr Resulting Lab, Provider from Last 3 [...] 0.4 See Table ng/mL 07/23/2024 18:[address] [facility] Comment: Female Reference Ranges: [...] & BLOOD GA S ORDERABLES Final Result [facility] [address] [place] [address] * HEPATITIS C AB W REFLEX TO HCV RNA BY PCR (04/30/2024 15:13 EDT) Hep C Antibody Negative Negative 04/30/2024 23:[address] [facility] Blood VENOUS BLOOD / Unknown 04/30/2024 15:13 EDT 04/30/2024 22:10 EDT us Provider Outr Resulting Lab CHEMISTRY & BLOOD GA S ORDERABLES Final Result [facility] [address] [place], [place] [address] from Last 3 Months or Most Recently Relevant to Health Maintenance Insurance Care Teams Maitre D Relationship Specialty Start Date End Date Kerry Green MD [address] [place] [address] PCP - General 06/11/20
--- OUTSIDE RECORDS SUMMARY | 2024-08-16 01:30 | XMS_ITS | Encounter Summary ---
Author Organization [facility] Address [address] [place] [address] Care Team Providers Care Personal Care Worker Name Role Phone Kerry Green MD Primary Care Provider [phone] Encounter Details Date Type Department Care Team (Late st Contact Info) Description 06/03/2024 Lab Requisition [facility] Pathology & Laboratory Medicine - [address] [address] Outr Resulting Lab, Provider Social History Tobacco [...] 0.3 See Table ng/mL 06/03/2024 17:39 EST [facility] Comment: Female Reference [...] S ORDERABLES Final Result Performing Organization Address [facility]/State/[facility] Co de Phone Number [facility] [address] [place] [address] documented in this encounter Visit Diagnoses Not on filedocumented in this encounter Care Teams Personal Care Worker Relationship Specialty Start Date End Date Kerry Green MD [address] [place] [address] PCP - General 06/11/20 documented as of this encounter
--- OUTSIDE RECORDS SUMMARY | 2024-08-16 01:30 | XMS_ITS | Encounter Summary ---
Author Organization [facility] Address [address] [place] [address] Care Team Providers Care Prison Guard Supervisor Name Role Phone Kerry Green MD Primary Care Provider [phone] Encounter Details Date Type Department Care Team (Late st Contact Info) Description 09/01/2022 Lab Requisition [facility] Pathology & Laboratory Medicine - [address] [address] Shital Villela, MEDICAL TECHNICIAN [address] [place] [phone] Encounter for other general examination Social History [...] System with Manual Evaluation 09/14/2022 8:20 EST [facility] Specimen Adequacy Satisfactory for Evaluation - transformation zone component present 09/14/2022 8:20 EST [facility] General Categorization Epithelial Cell Abnormality 09/14/2022 8:20 EST [facility] Descriptive Diagnosis 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 09/14/2022 8:20 [facility] Educational Comments [facility] recommends following the ASCCP's management guidelines which may be found at www.asccp.org 09/14/2022 8:20 [facility] Attestation By the signature below, the attending physician certifies that they have personally conducted a gross and/or microscopic examination of the described specimens and rendered or confirmed the above diagnosis. 09/14/2022 8:20 [facility] at 0820 Clinical History See below 09/15/19 8:20 [facility] Performing Lab [facility] 09/14/2022 8:20 [facility] Scanned Images 09/14/2022 8:20 [facility] Papanicolaou smear specimen (specimen) CERVIX UTERI STRUCTURE / Unknown 08/31/2022 8:30 EST 09/01/2022 9:38 EST us Shital Villela MEDICAL TECHNICIAN PATHOLOGY ORDERABLES Eri l Result [facility] [address] [place] [address] documented in this encounter Visit Diagnoses Diagnosis Encounter for other general examination documented in this encounter Care Teams Prison Guard Supervisor Relationship Specialty Start Date End Date Kerry Green MD [address] [place] [address] PCP - General 06/11/20 documented as of this encounter
--- OUTSIDE RECORDS SUMMARY | 2024-08-16 01:30 | XMS_ITS | Encounter Summary ---
Author Organization [facility] Address [address] [place] [address] Care Team Providers Care Video Machines Mechanic Name Role Phone Kerry Green MD Primary Care Provider [phone] Encounter Details Date Type Department Care Team (Late st Contact Info) Description 08/23/2021 Lab Requisition [facility] Pathology & Laboratory Medicine - [address] [address] Lesley Mendoza, [address] [place] [phone] Encounter for other general examination Social History [...] System with Manual Evaluation 08/31/2021 15:12 EST [facility] Specimen Adequacy Satisfactory for Evaluation - transformation zone component absent 08/31/2021 15:12 EST [facility] General Categorization Negative for intraepithelial lesion or malignancy 08/31/2021 15:12 EST [facility] Attestation . 08/31/2021 15:12 EST [facility] at 1512 Clinical History See below 08/31/19 15:12 EST [facility] Performing Lab [facility] 08/31/2021 15:12 EST [facility] Scanned Images 08/31/2021 15:12 EST [facility] Papanicolaou smear specimen (specimen) CERVIX UTERI STRUCTURE / Unknown 08/20/2021 11:30 EST 08/23/2021 10:52 EST Lesley Mendoza WIRELESS ARCHITECT PATHOLOGY ORDERABLES Final R esult [facility] [address] [place] [address] documented in this encounter Visit Diagnoses Diagnosis Encounter for other general examination documented in this encounter Care Teams Video Machines Mechanic Relationship Specialty Start Date End Date Kerry Green MD [address] [place] [address] PCP - General 06/11/20 documented as of this encounter
--- OUTSIDE RECORDS SUMMARY | 2024-08-16 01:30 | XMS_ITS | Encounter Summary ---
Author Organization [facility] Address [address] [place] [address] Care Team Providers Care Bar Examiner Name Role Phone Kerry Green MD Primary Care Provider [phone] Encounter Details Date Type Department Care Team (Late st Contact Info) Description 04/30/2024 Lab Requisition [facility] Pathology & Laboratory Medicine - [address] [phone] Outr Resulting Lab, Provider Social History Tobacco [...] Negative Negative 04/30/2024 23:52 EDT [facility] Comment:If acute HIV-1 infec tion is suspected in a high risk patient, submit plasma specimen for HIV-1 RNA quantitation test. Blood VENOUS BLOOD / Unknown 04/30/2024 15:13 EDT 04/30/2024 22:10 EDT Narrative [facility] - 04/30/2024 23:52 EDT Fourth Generation assay performed on the Siemens Centaur XPT. us Provider Outr Resulting Lab IMMUNOLOGY AND SEROL OGY ORDERABLES Final Result [facility] [address] [place], [place] [address] documented in this encounter Visit Diagnoses Not on filedocumented in this encounter Care Teams Bar Examiner Relationship Specialty Start Date End Date Kerry Green MD [address] [place] [address] PCP - General 06/11/20 documented as of this encounter
--- OUTSIDE RECORDS SUMMARY | 2024-08-16 01:30 | XMS_ITS | Encounter Summary ---
Author Organization [facility] Address [address] [place] [address] Care Team Providers Care Home Demonstrator Name Role Phone Kerry Green MD Primary Care Provider [phone] Encounter Details Date Type Department Care Team (Late st Contact Info) Description 04/30/2024 Lab Requisition [facility] Pathology & Laboratory Medicine - [address] [address] Outr Resulting Lab, Provider Social History Tobacco [...] Ab 36 <=60 U/mL 2023 10:57 EDT [facility] Blood VENOUS BLOOD / Unknown 04/30/2024 15:13 EDT 04/30/2024 22:10 EDT us Provider Outr Resulting Lab CHEMISTRY & BLOOD GA S ORDERABLES Final Result Performing Organization Address [facility]/ZIP Co de Phone Number [facility] [address] [place] [address] * SYPHILIS SEROLOGY (04/30/2024 15:13 EDT) Syphilis Serology Negative Negative 05/01/2024 12:48 EDT [facility] Blood VENOUS BLOOD / Unknown 04/30/2024 15:13 EDT 04/30/2024 22:10 EDT us Provider Outr Resulting Lab IMMUNOLOGY AND SEROL OGY ORDERABLES Final Result Performing Organization Address [facility] Co de Phone Number [facility] [address] [place] [address] * MEASLES IGG AB (04/30/2024 15:13 EDT) Measles IgG Ab Positive See Note 05/01/2024 12:38 EDT [facility] Comment:Presence of detectab le measles virus IgG antibodies. Blood VENOUS BLOOD / Unknown 04/30/2024 15:13 EDT 04/30/2024 22:10 EDT us Provider Outr Resulting Lab IMMUNOLOGY AND SEROL OGY ORDERABLES Final Result Performing Organization Address [facility]/ZIP Co de Phone Number [facility] [address] [place] [address] * VARICELLA IGG ANTIBODY (04/30/2024 15:13 EDT) Varicella IgG Ab Positive See Note 05/01/2024 12:43 EDT [facility] Comment:Presence of detectab le Varicella Zoster virus IgG antibodies. Blood VENOUS BLOOD / Unknown 04/30/2024 15:13 EDT 04/30/2024 22:10 EDT us Provider Outr Resulting Lab IMMUNOLOGY AND SEROL OGY ORDERABLES Final Result [facility] [address] [place] [address] documented in this encounter Visit Diagnoses Not on filedocumented in this encounter Care Teams Home Demonstrator Relationship Specialty Start Date End Date Kerry Green MD [address] [place] [address] PCP - General 06/11/20 documented as of this encounter
--- OUTSIDE RECORDS SUMMARY | 2024-08-16 01:30 | XMS_ITS | Encounter Summary ---
Author Organization [facility] Address [address] [place] [address] Care Team Providers Care Legal Billing Specialist Name Role Phone Kerry Green MD Primary Care Provider [phone] Encounter Details Date Type Department Care Team (Late st Contact Info) Description 09/23/2022 Lab Requisition [facility] Pathology & Laboratory Medicine - [address] [address] Hiral Paz MD [address] [place] [address] [place] [address] Encounter for other general examination [...] management options, if applicable. 09/27/2022 10:39 EDT [facility] Final Diagnosis A. 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 See comment. 09/27/2022 10:39 [facility] Diagnosis Comment Focal squamous intraepithelial neoplasia is noted, however the focus is small and poorly oriented. The focus is absent on IHC stains, therefore high-grade dysplasia cannot be entirely excluded. Immunoperoxidase stains were performed on this case to further characterize the lesion. ANTIBODY(CLONE)(BL OCK):RESULT P16 (E6H4TM, Nitta Yuma) (A1): Atypical squamous epithelium absent on IHC; [...] performance characteristics have been determined by [facility] and/or by the referring laboratory. The [...] high complexity clinical laboratory testing. 09/27/2022 10:39 [facility] Attestation There was significant resident/fellow involvement in the diagnostic evaluation of this case. By the signature below, the attending physician certifies that they have personally conducted a gross and/or microscopic examination of the described specimens and rendered or confirmed the above diagnosis. 09/27/2022 10:39 [facility] at 1039 Clinical History LSIL 09/27/2022 10:39 [facility] Gross Description A. Received in formalin, on a Histologic SFT-100 device, labelled with proper patient identification (initials C, S) and cervical Bx is a 0.2 x 0.1 x 0.1 cm aggregate of das-white soft tissue. The specimen is entirely submitted in A1. LETICIA FREEMAN(ASCP) 09/23/2022 10:14 09/27/2022 10:39 EDT [facility] Resident/Robby w: Patti Pike MD 09/27/2022 10:39 EDT [facility] Performing Lab [facility] 10:39 EDT [facility] Scanned Images 09/27/2022 10:39 EDT [facility] Tissue ENTIRE WALL OF CERVIX / Unknown 09/22/2022 15:30 EDT 09/23/2022 8:10 EDT us Hiral Paz MD PATHOLOGY ORDERABLES Final R esult [facility] [address] [place] [address] documented in this encounter Visit Diagnoses Diagnosis Encounter for other general examination documented in this encounter Care Teams Legal Billing Specialist Relationship Specialty Start Date End Date Kerry Green MD [address] [place] [address] PCP - General 06/11/20 documented as of this encounter
--- OUTSIDE RECORDS SUMMARY | 2024-08-16 01:30 | XMS_ITS | Encounter Summary ---
Author Organization [facility] Address [address] [place] [address] Care Team Providers Care Snack Bar Attendant Name Role Phone Kerry Green MD Primary Care Provider [phone] Encounter Details Date Type Department Care Team (Late st Contact Info) Description 07/23/2024 Lab Requisition [facility] Pathology & Laboratory Medicine - [address] [address] Outr Resulting Lab, Provider Social History Tobacco [...] Diagnosis Comments PROGESTERONE Routine 07/23/2024 10:35 EST documented in this encounter Results * PROGESTERONE (07/23/2024 10:35 EST) Progesterone 0.4 See Table ng/mL 07/23/2024 18:27 EST [facility] Comment: Female Reference [...] S ORDERABLES Final Result Performing Organization Address [facility] Co de Phone Number [facility] [address] [place] [address] documented in this encounter Visit Diagnoses Not on filedocumented in this encounter Care Teams Snack Bar Attendant Relationship Specialty Start Date End Date Kerry Green MD [address] [place] [address] PCP - General 06/11/20 documented as of this encounter
--- OUTSIDE RECORDS SUMMARY | 2024-08-16 01:31 | XMS_ITS | Encounter Summary ---
Author Organization [facility] Address [address] [place] [address] Care Team Providers Care Occupational Rehabilitation Aide Name Role Phone Kerry Green MD Primary Care Provider [phone] Encounter Details Date Type Department Care Team (Late st Contact Info) Description 07/16/2020 Lab Requisition [facility] Pathology & Laboratory Medicine - [address] [address] Elissa Cesar MD [address] [place] [address],[address] [address] Encounter for other general examination Social History [...] epithelial change. See comment. 07/22/2020 16:34 EST [facility] Diagnosis Comment The prior Pap test ([id number]) has been reviewed and we agree with the diagnosis of low grade squamous intraepithelial lesion (LSIL). The atypical cells present on the Pap test are not present on the cervical biopsy or endocervical curettage. Deeper sections have been evaluated. 07/22/2020 16:34 [facility] Attestation There was significant resident/fellow involvement in the diagnostic evaluation of this case. By the signature below, the attending physician certifies that they have personally conducted a gross and/or microscopic examination of the described specimens and rendered or confirmed the above diagnosis. 07/22/2020 16:34 [facility] at 1634 Clinical History LSIL +HPV 07/22/2020 16:34 [facility] Gross Description A. Received [...] B1. LETICIA FREEMAN(ASCP) 07/16/2020 16:34 07/22/2020 16:34 [facility] Resident/Robby w: Huber Redman MD 07/22/2020 16:34 [facility] Performing Lab [facility] 16:34 [facility] Scanned Images 07/22/2020 16:34 [facility] Tissue ENTIRE WALL OF CERVIX / Unknown 07/16/2020 10:10 EST 07/16/2020 15:40 EST Tissue specimen (specimen) CERVIX UTERI STRUCTURE / Unknown 07/16/2020 10:10 EST 07/16/2020 15:40 EST us Elissa Cesar MD PATHOLOGY ORDERABLES Final Res ult [facility] [address] [place] [address] documented in this encounter Visit Diagnoses Diagnosis Encounter for other general examination documented in this encounter Care Teams Occupational Rehabilitation Aide Relationship Specialty Start Date End Date Kerry Green MD [address] [place] [id number] PCP - General 06/11/20 documented as of this encounter
--- OUTSIDE RECORDS SUMMARY | 2024-08-16 01:31 | XMS_ITS | Encounter Summary ---
Author Organization [facility] Address [address] [place] [address] Care Team Providers Care Convex Grinder Name Role Phone Kerry Green MD Primary Care Provider [phone] Encounter Details Date Type Department Care Team (Late st Contact Info) Description 06/12/2020 Lab Requisition [facility] Pathology & Laboratory Medicine - [address] [address] Lesley Mendoza, [address] [place] [id number] Encounter for other general examination Social History [...] PCR Positive( A) Negative 06/25/2020 14:52 EST [facility] Comment:E6 OR E7 mRNA from o ne or more types of HPV types 16,18,31,33,35,39,45,51,52,56,58,59,66, and 68 is detected by outsole paraffiner mediated amplification. High and intermediate risk HPV types are associated with most squamous intraepithelial lesions and cervical cancers. Papanicolaou smear specimen (specimen) CERVIX UTERI STRUCTURE / Unknown 06/11/2020 14:00 EST 06/18/2020 11:21 EST Lesley Mendoza PHOTOGRAPHIC ARTIST MICROBIOLOGY - GENERAL ORDER HAM Final Result [facility] [address] [place] [address] * PAP TEST (06/11/2020 14:00 EST) Specimens A. Cervix and/or Endocervix , ThinPrep Imaging System with Manual Evaluation 06/25/2020 14:52 [facility] Specimen Adequacy Satisfactory for Evaluation - transformation zone component present 06/25/2020 14:52 [facility] General Categorization Epithelial Cell Abnormality 06/25/2020 14:52 [facility] Descriptive Diagnosis 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 06/25/2020 14:52 [facility] Educational Comments [facility] recommends following ASCCP's 2012 Updated Consensus Guidelines for the Management of Abnormal Cervical Cancer Screening Tests and Cancer Precursors (JLGTD, 2013; 17(5):S1-S27). Consensus guidelines are available online at www.asccp.org. 06/25/2020 14:52 [facility] Attestation By the signature below, the attending physician certifies that they have personally conducted a gross and/or microscopic examination of the described specimens and rendered or confirmed the above diagnosis. 06/25/2020 14:52 [facility] at 1452 Clinical History See below 06/25/20 14:52 [facility] HPV The result for the Human Papillomavirus (HPV) Detection-High Risk Types is Positive . E6 OR E7 mRNA from one or more types of HPV types 16,18,31,33,35,39 ,45,51,52,56,58,5 9,66, and 68 is detected by outsole paraffiner mediated amplification. High and intermediate risk HPV types are associated with most squamous intraepithelial lesions and cervical cancers. Testing was performed on specimen [id number] and was resulted on 06/25/2020 1449 EST by LEXY, LAB INSTRUMENT RESULTS IN 06/25/2020 14:52 EST [facility] Performing Lab [facility] 06/25/2020 14:52 EST [facility] Scanned Images 06/25/2020 14:52 EST [facility] Papanicolaou smear specimen (specimen) CERVIX UTERI STRUCTURE / Unknown 06/11/2020 14:00 EST 06/12/2020 9:55 EST us Lesley Mendoza PHOTOGRAPHIC ARTIST PATHOLOGY ORDERABLES Final R esult [facility] [address] [place] [address] documented in this encounter Visit Diagnoses Diagnosis Encounter for other general examination documented in this encounter Care Teams Convex Grinder Relationship Specialty Start Date End Date Kerry Green MD [address] [place] [address] PCP - General 06/11/20 documented as of this encounter
--- OUTSIDE RECORDS SUMMARY | 2024-08-16 01:31 | XMS_ITS | Encounter Summary ---
Author Organization [facility] Address [address] [place] [address] Care Team Providers Care Construction Analyst Name Role Phone Unknown, Provider Primary Care Provider Unava ilable Encounter Details Date Type Department Care Team (Late st Contact Info) Description 01/03/2019 Results Only [facility] [phone] Dillon Serrano, [address] [address] Social History Tobacco Use Types Packs/Day Years [...] ? SMILEY JOHN ? Accession #: ? [id number] : ? 1995 (Age: 23) ??F ?Collect [...] Report Date: ??01/09/2019 12:37 End of Report [facility] 01/03/2019 01/04/2019 us Dillon Serrano [facility] PATHOLOGY ORDERABLES Fin al Result [facility] [address] [place] [address] documented in this encounter Visit Diagnoses Not on filedocumented in this encounter Care Teams Construction Analyst Relationship Specialty Start Date End Date Unknown, Provider, PCP - General 06/26/15 06/10/20 documented as of this encounter
--- OUTSIDE RECORDS SUMMARY | 2024-08-16 01:31 | XMS_ITS | Encounter Summary ---
Author Organization [facility] Address [address] [place] [address] Care Team Providers Care Maintenance And Utilities Supervisor Name Role Phone Unknown, Provider Primary Care Provider Unava ilable Encounter Details Date Type Department Care Team (Late st Contact Info) Description 06/26/2015 Results Only [facility] [phone] Dillon Serrano, [address] [address] Social History Tobacco Use Types Packs/Day Years [...] ? SMILEY JOHN ? Accession #: ? [id number] : ? 1995 (Age: 19) ??F ?Collect [...] Report Date: ??07/01/2015 14:22 End of Report [facility] 06/26/2015 06/29/2015 us Dillon Serrano [facility] PATHOLOGY ORDERABLES Fin al Result [facility] [address] [place] [address] documented in this encounter Visit Diagnoses Not on filedocumented in this encounter Care Teams Maintenance And Utilities Supervisor Relationship Specialty Start Date End Date Unknown, Provider, PCP - General 06/26/15 06/10/20 documented as of this encounter
[2024-08-16 09:35] LABS: HCG Quant, Pregnancy 1 mIU/mL (1-3)
[2024-08-16 18:19] LABS: Progesterone 0.4 ng/mL (See Table)
[2024-08-19 13:07] LABS: Antimullerian Hormone 1.4 ng/mL (0.58-8.1)
== END 2024-08-16 01:25 | disposition home or self-care (01) ==
LOC: LBO 01:24
PROVIDERS: PCP Nurse Practitioner Family; Visit Provider Nurse Practitioner Family
DX: N97.9 Female infertility, unspecified (principal)
CPT/HCPCS: 36415; 83520; 84144; 84702

== ENCOUNTER 2024-09-09 12:44 | Outpatient (CLI) | payer OTHER, SELFPAY ==
[2024-09-09 14:28] LABS: HCG Quant, Pregnancy 1 mIU/mL (1-3)
[2024-09-09 22:23] LABS: Estradiol 57 pg/mL (See Note)
[2024-09-09 22:27] LABS: Progesterone 0.3 ng/mL (See Table)
[2024-09-09 23:09] LABS: LH 4.6 mIU/mL (See Note)
[2024-09-11 16:35] LABS: Antimullerian Hormone 1.3 ng/mL (0.58-8.1)
== END 2024-09-09 12:45 | disposition home or self-care (01) ==
LOC: LBO 12:44
PROVIDERS: PCP Nurse Practitioner Family; Visit Provider Nurse Practitioner Family
DX: N97.9 Female infertility, unspecified (principal)
CPT/HCPCS: 36415; 82670; 83002; 83520; 84144; 84702

== ENCOUNTER 2024-09-30 09:32 | Outpatient (REF) | payer OTHER, SELFPAY ==
--- NOTE | 2024-09-30 09:15 | PAPFT_PTH ---
PATIENT: Ratna King LOC: [facility] U#:[id number] AGE/SX: 28/F ROOM: RE09/30/[address]: Shital Villela NP : 1995 BED: DIS: 09/30/2024 SPEC #: [id number] RECD: 09/30/24 12:33 STATUS: [place] REJoesph #: [id number] STEFANIE: 09/30/24 09:[address]: Shital Villela NP DEPT: [facility] Cytology RECD BY: Joselyn Keita ENTERED: 09/30/24 12:34 SP TYPE: PAPFT OTHR DR: Federica Metzger Tissues: 1 - CX/ENDOCX FOR PAP SMEARS Procedures: PAP THIN PREP/[facility] Screening HPV DNA PROBE Comments: [id number] (HPV 16 & 18/45)
== END 2024-09-30 09:33 | disposition home or self-care (01) ==
LOC: LBN 09:32
PROVIDERS: PCP Nurse Practitioner Family; Visit Provider Nurse Practitioner Women's Health
DX: Z12.4 Encounter for screening for malignant neoplasm of cervix (principal); Z01.419 Encounter for gynecological examination (general) (routine) without abnormal findings
CPT/HCPCS: 88142; 87624

== ENCOUNTER 2025-04-16 08:51 | Outpatient (CLI) | payer OTHER, SELFPAY ==
[2025-04-16 10:21] LABS: TSH 1.71 uIU/mL (0.36-3.74)
[2025-04-16 19:46] LABS: Hepatitis C Ab w Rflx HCV PCR Negative (Negative)
[2025-04-16 19:50] LABS: Hep B Core Antibody Negative (Negative)
[2025-04-17 00:25] LABS: HIV-1/2 Ag & Ab Screen Negative (Negative)
[2025-04-17 10:53] LABS: Chlamydia Result Negative (Negative); GC Result Negative (Negative)
[2025-04-17 11:17] LABS: Syphilis Serology (RPR) Negative (Negative)
== END 2025-04-16 08:52 | disposition home or self-care (01) ==
LOC: LBO 08:51
PROVIDERS: PCP Nurse Practitioner Family; Visit Provider Nurse Practitioner Family
DX: Z11.59 Encounter for screening for other viral diseases (principal); N97.9 Female infertility, unspecified; Z11.4 Encounter for screening for human immunodeficiency virus [HIV]; Z11.3 Encounter for screening for infections with a predominantly sexual mode of transmission
CPT/HCPCS: 36415; 86704; 86803; 87340; 87389; 87491; 87591; 84443; 86376; 86592

== ENCOUNTER 2025-05-29 01:51 | Outpatient (CLI) | payer OTHER, SELFPAY ==
[2025-05-29 07:47] LABS: HCT 41.5 % (36.0-46.0); HGB 14.1 g/dL (11.2-15.7); MCH 31.3 pg (27.0-33.0); MCHC 34.0 % (32.0-36.0); MCV 92 fL (80-95); MPV 8.9 fL (8.0-11.0); Platelet Count 411 10^3/uL (130-400); RBC 4.50 10^6/uL (3.93-5.22); RDW 11.7 % (11.7-14.6); RDW-SD 39.6 fL; WBC 10.04 10^3/uL (4.4-10.8)
[2025-05-29 08:49] LABS: ALT 31 U/L (10-49); AST 20 U/L (<34); Albumin 4.6 g/dL (3.4-5.0); Alkaline Phosphatase 64 U/L (46-116); Anion Gap 6.7 mmol/L (3-11); BUN 12 mg/dL (9-23); Bilirubin, Total 0.60 mg/dL (0.2-1.2); CO2 27.3 mmol/L (20.0-31.0); Calcium 9.0 mg/dL (8.3-10.6); Chloride 105 mmol/L (98-107); Glucose 91 mg/dL (74-106); Potassium 4.0 mmol/L (3.5-5.1); Sodium 139 mmol/L (136-145); Total Protein 7.5 g/dL (5.7-8.2)
== END 2025-05-29 01:52 | disposition home or self-care (01) ==
LOC: LBO 01:51
PROVIDERS: PCP Nurse Practitioner Family; Visit Provider Nurse Practitioner Women's Health
DX: Z31.9 Encounter for procreative management, unspecified (principal)
CPT/HCPCS: 36415; 80053; 85027